=== PATIENT | male | born 1945 | race Caucasian/White ===

== ENCOUNTER 2018-05-06 08:13 | Observation (INO) | payer MEDICARE, BC ==
[2018-05-06 09:11] LABS: ABS Basophils 0.1 10^3/ul (0-0.2); ABS Eosinophils 0.5 10^3/ul (0-0.6); ABS Monocytes 0.6 10^3/ul (0-0.8); ABS Neutrophils 2.5 10^3/ul (1.5-7.7); ABS Nucleated RBC 0 10^3/ul; Eosinophil % 8.2 %; Hematocrit 44 % (42-52); Hemoglobin 14.8 g/dl (14.0-18.0); Lymphocyte % 35.5 %; Mean Corpuscular HGB Conc 34 g/dl (31-36); Mean Corpuscular Hemoglobin 30 pg (27-31); Mean Corpuscular Volume 90 fL (80-94); Mean Platelet Volume 7.9 fL (7.4-10.4); Nucleated Red Blood Cells % 0.1; Platelet Count 163 10^3/ul (150-450); Red Blood Count 4.89 10^6/ul (4.00-5.40); Red Cell Distribution Width 13 % (10.5-15); White Blood Count 5.7 10^3/ul (3.5-10.8)
--- NOTE | 2018-05-06 09:23 | ED ---
Hypertension - HPI Summary HPI Summary: This patient is a 73 year old [place] [facility] [place] by with a chief complaint of high blood pressure that began yesterday. The patient rates the pain 5/10 in severity. Symptoms aggravated by nothing. Symptoms alleviated by nothing. Patient reports left-sided neck pain, dizziness, LLQ abd pain ( worsening in the past year), and top right head feels funny (he hit his head previously). Patient denies CP, upper back pain, and weakness. - History of Current Complaint Chief Complaint: EDHypertension Stated Complaint: POSS HBP/DIZZINESS/LEFT LOWER ABD PAIN Time Seen by Provider: 05/06/18 08:52 Hx Obtained From: Patient Onset/Duration: Started Days Ago, Atraumatic, Still Present Timing: Constant Aggravating Factor(s): Nothing Alleviating Factor(s): Nothing Associated Signs & Symptoms: Other: - Positive left-sided neck pain, dizziness, LLQ abd pain (worsening in the past year), and top right head feels funny (he hit his head previously). Negative CP, upper back pain, and weakness. - Allergies/Home Medications Allergies/Adverse Reactions: Allergies Allergy/AdvReac Type Severity Reaction Status Date / Time amoxicillin Allergy Mild Rash Verified 05/06/18 10:03 Sulfa (Sulfonamide Allergy Mild Headache Verified 05/06/18 10:03 Antibiotics) Home Medications: Home Medications Cholecalciferol TAB* [Vitamin D TAB*] 2,000 unit PO DAILY 05/06/18 [History Confirmed 05/06/18] Citalopram TAB* [Celexa TAB*] 10 mg PO DAILY 05/06/18 [History Confirmed ] Docusate Sodium [Colace] 100 mg PO DAILY 05/06/18 [History Confirmed 05/06/18] Esomeprazole(NF) [Nexium(NF)] 40 mg PO DAILY 05/06/18 [History Confirmed ] Morphine Sulfate [Ms Contin] 15 mg PO BEDTIME 05/06/18 [History Confirmed ] oxyCODONE/Acetamin 5/325 MG* [Percocet 5/325 TAB*] 1 tab PO Q6H PRN 05/06/18 [ History Confirmed 05/06/18] PMH/Surg Hx/FS Hx/Imm Hx Previously Healthy: No Endocrine/Hematology History: Denies: Hx Diabetes, Hx Systemic Lupus Erythematosus Cardiovascular History: Denies: Hx Congestive Heart Failure, Hx Hypertension, Hx Pacemaker/ICD GI History: Reports: Other GI Disorders - constipation, epigastric "ache" History: Denies: Hx Dialysis, Hx Renal Disease Musculoskeletal History: Denies: Hx Rheumatoid Arthritis Sensory History: Denies: Hx Hearing Aid Psychiatric History: Denies: Hx Panic Disorder - Cancer History Cancer Type, Location and Year: follicular lymphoma Hx Chemotherapy: Yes - Surgical History Surgery Procedure, Year, and Place: metal plate in left wrist in 2014 at age 68 - Immunization History Date of Tetanus Vaccine: up to date per pt/family Infectious Disease History: No Infectious Disease History: Denies: History Other Infectious Disease, Traveled Outside the [place] in Last 30 Days - Family History Known Family History: Positive: Other - GERD - Social History Occupation: Retired Lives: With Family Alcohol Use: None Alcohol Amount: pt quit drinking 3 years. Hx Substance Use: No Substance Use Type: Reports: None Hx Tobacco Use: Yes Smoking Status (MU): Former Smoker Review of Systems Positive: Other - Positive high blood pressure. Negative: Chest Pain Positive: Abdominal Pain Positive: Other - Positive left-sided neck pain. Negative upper back pain Neurological: Other - Positive top right head "feels funny" and dizziness Negative: Weakness All Other Systems Reviewed And Are Negative: Yes Physical Exam - Summary Physical Exam Summary: GENERAL: Patient is a well-developed and nourished male who is lying comfortable in the stretcher. Patient is not in any acute respiratory distress. HEAD AND FACE: Normocephalic EYES: PERRLA, EOMI x 2. EARS: Hearing grossly intact. MOUTH: Oropharynx within normal limits. NECK: Supple, trachea is midline, no adenopathy, no JVD, no carotid bruit. CHEST: Symmetric, no tenderness at palpation LUNGS: Clear to auscultation bilaterally. No wheezing or crackles. CVS: Regular rate and rhythm, S1 and S2 present, no murmurs or gallops appreciated. ABDOMEN: Soft. Tender to palpation in the LLQ. No rebound or guarding. Bowel sounds are normal. No abdominal abnormal pulsations. EXTREMITIES: Full ROM in all major joints, no edema, no cyanosis or clubbing. NEURO: Alert and oriented x 3. No acute neurological deficits. Speech is normal and follows commands. SKIN: Dry and warm Triage Information Reviewed: Yes Vital Signs On Initial Exam: Initial Vitals Temp Pulse Resp BP Pulse Ox 97.3 F 58 16 173/102 95 05/06/18 08:20 05/06/18 08:20 05/06/18 08:20 05/06/18 08:20 05/06/18 08:20 Vital Signs Reviewed: Yes Diagnostics - Vital Signs Vital Signs Temp Pulse Resp BP Pulse Ox 05/06/18 09:04 95 05/06/18 08:20 97.3 F 58 16 173/102 95 - Laboratory Lab Results: Lab Results 05/06/18 Range/Units 09:05 WBC 5.7 (3.5-10.8) 10^3/ul RBC 4.89 (4.00-5.40) 10^6/ul Hgb 14.8 (14.0-18.0) g/dl Hct 44 (42-52) % MCV 90 (80-94) fL MCH 30 (27-31) pg MCHC 34 (31-36) g/dl RDW 13 (10.5-15) % Plt Count 163 (150-450) 10^3/ul MPV 7.9 (7.4-10.4) fL Neut % (Auto) 43.5 % Lymph % (Auto) 35.5 % Collier % (Auto) 10.4 % Eos % (Auto) 8.2 % Baso % (Auto) 2.4 % Absolute Neuts (auto) 2.5 (1.5-7.7) 10^3/ul Absolute Lymphs (auto) 2.0 (1.0-4.8) 10^3/ul Absolute Monos (auto) 0.6 (0-0.8) 10^3/ul Absolute Eos (auto) 0.5 (0-0.6) 10^3/ul Absolute Basos (auto) 0.1 (0-0.2) 10^3/ul Absolute Nucleated RBC 0 10^3/ul Nucleated RBC % 0.1 Result Diagrams: 05/06/18 09:05 05/06/18 09:05 Lab Statement: Any lab studies that have been ordered have been reviewed, and results considered in the medical decision making process. - Radiology CXR Radiology Interpretation Completed By: Radiologist Summary of Radiographic Findings: CXR reveals, per radiologist, no active cardiopulmonary disease. ED physician has reviewed this radiology report. - CT Head CTA CT Interpretation Completed By: Radiologist Summary of CT Findings: Head CTA reveals, per radiologist, 1. ATHEROSCLEROSIS. 2. BILATERAL INTERNAL CAROTID ARTERY STENOSIS OF APPROXIMATELY 60% BY NASCET CRITERIA. 3. NO ANEURYSM, VASCULAR MALFORMATION, OCCLUSION, OR STENOSIS OF THE VISUALIZED INTRACRANIAL CIRCULATION. 4. 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 ED physician has reviewed this radiology report. CT Abdomen and Pelvis CT Interpretation Completed By: Radiologist Summary of CT Findings: CT abdomen and pelvis reveals, per radiologist, 1. Atherosclerosis. 2. Fatty infiltration of the liver. 3. No acute CT pathology of the visualized abdomen and pelvis. ED physician has reviewed this radiology report. - EKG 0925 Cardiac Rate: Bradycardia EKG Rhythm: Sinus Rhythm - 52 BPM Summary of EKG Findings: An EKG taken at 0925 reveals sinus bradycardia at 52 BPM with prolonged FL. Re-Evaluation - Re-Evaluation First Eval Re-Evaluation Time: 11:56 Change: Unchanged Comment: Discussed results and plan of care with patient. Hypertension Course/Dx - Course Course Of Treatment: 73-year-old male who presents to the emergency room with elevated blood pressure, left-sided neck pain, abdominal pain. CTA head and neck was remarkable for 60% stenosis of bilateral internal carotid. Dr. Navarro of vascular surgery was consulted who stated that the patient can be discharged home in aspirin and statin and will follow-up with him in the office. Patient's blood pressure continues to be elevated despite antihypertensive and so the decision was made to admit him to the hospital. Case discussed with hospitalist. - Diagnoses Provider Diagnoses: Hypertension - Physician Notifications Discussed Care Of Patient With: Joce French Time Discussed With Above Provider: 14:05 Instructed by Provider To: Other - Consult with Dr. Vasquez (vascular surgeon at [facility]) at 1211. He recommended the patient be discharged with low dose aspirin and low dose statin. His office will communicate with the patient to schedule a follow up. Consult with Dr. French (hospitalist) at 1405. He agrees to admit the patient for further evaluation. Discharge - Sign-Out/Discharge Documenting (check all that apply): Patient Departure - [place] [facility] [place] Received Moderate/Deep Sedation with Procedure: No - Discharge Plan Condition: Improved Disposition: ADMITTED TO [facility] - Billing Disposition and Condition Condition: IMPROVED Disposition: Admitted to [facility] - Attestation Statements Document Initiated by Rosalvaibe: Yes Documenting Scribe: Brianna Gould Provider For Whom Virgen is Documenting (Include Credential): Dr. Parris Long MD Scribe Attestation: IBrianna, scribed for Dr. Parris Long MD on 05/08/18 at 1451. Scribe Documentation Reviewed: Yes Provider Attestation: The documentation as recorded by the Brianna rose accurately reflects the service I personally performed and the decisions made by me, Dr. Parris Long MD Status of Scribe Document: Viewed
[2018-05-06 09:33] LABS: Albumin 3.9 g/dL (3.2-5.2); Albumin/Globulin Ratio 1.2 (1-3); BUN/Creatinine Ratio 11.8 (8-20); Calcium 9.6 mg/dL (8.6-10.3); EGFR African American 72.7 (>60); EGFR Non-African American 60.1 (>60); Globulin 3.3 g/dL (2-4); Potassium 3.8 mmol/L (3.5-5.0); Total Protein 7.2 g/dL (6.4-8.9)
[2018-05-06] MEDS ORDERED: NS 0.9% 1000 ML** 1,000 ML IV ONE (09:34)
[2018-05-06] MEDS ORDERED: Metoclopramide IV* 5 MG/ML 2 ML VIAL IV ONE (09:34)
[2018-05-06] MEDS ORDERED: Morphine VIAL* 4 MG/ML VIAL (1 ml vial) IV ONE (09:34)
[2018-05-06 09:41] LABS: Activated Partial Thrombo Time 28.1 seconds (26.0-36.3); INR 0.92 (0.77-1.02)
[2018-05-06] MEDS ORDERED: Iohexol 350* (CONTRAST) 500 ML MDV IV ONE (09:47)
[2018-05-06] MEDS ORDERED: hydrALAZINE IV* 20 MG/ML VIAL IV SLOW PU ONE (11:25)
[2018-05-06 11:41] LABS: Urine Appearance Clear; Urine Bilirubin Negative (Negative); Urine Blood Negative (Negative); Urine Color Straw; Urine Glucose Negative (Negative); Urine Ketones Negative (Negative); Urine Nitrite Negative (Negative); Urine Protein Negative (Negative); Urine Specific Gravity 1.034 (1.010-1.030); Urine Urobilinogen Negative (Negative)
[2018-05-06] MEDS ORDERED: Metoprolol Tartrate TAB* 25 MG PO ONE (12:04)
[2018-05-06] MEDS ORDERED: Ondansetron INJ* 2 MG/ML VIAL ONE (15:05)
[2018-05-06] MEDS ORDERED: Ondansetron INJ* 2 MG/ML VIAL IV ONE ×2 (15:06→15:08)
[2018-05-06] MEDS ORDERED: hydrALAZINE IV* 20 MG/ML VIAL IV SLOW PU PRN (15:08)
[2018-05-06] MEDS ORDERED: Acetaminophen TAB* 325 MG PO ONE (15:08)
[2018-05-06] MEDS: hydrALAZINE IV* 20 MG/ML VIAL IV SLOW PU ONE ×2 (15:21→16:01)
[2018-05-06] MEDS: Hydrochlorothiazide TAB* 25 MG PO SCH (15:21)
[2018-05-06 15:45] LABS: Troponin I 0.01 ng/mL (<0.04)
[2018-05-06] MEDS: Aspirin 81 mg CHEW TAB* 81 MG TAB.CHEW PO SCH (17:34)
[2018-05-06] MEDS: oxyCODONE/Acetamin 5/325 MG* TAB PO PRN (17:54)
[2018-05-06] MEDS ORDERED: Atorvastatin* 20 MG TAB PO SCH (21:00)
[2018-05-06] MEDS ORDERED: Morphine TAB Extended Release (*) 15 MG TAB.ER PO SCH (21:00)
[2018-05-06] MEDS: Heparin VIAL(*) 5000 UNITS/ML VIAL (FIVE THOUSAND) SUBCUT SCH (21:43)
[2018-05-06] MEDS: Diazepam TAB(*) 5 MG PO SCH (21:43)
[2018-05-06] MEDS: Propranolol TAB* 10 MG PO SCH (21:43)
--- NOTE | 2018-05-06 22:31 | HP ---
CC: Dr. Scott Cerda; Dr. Faraz Cochran * HISTORY AND PHYSICAL: DATE OF ADMISSION: 05/06/18 PRIMARY CARE PROVIDER: Dr. Scott Cerda. PRIMARY ONCOLOGIST: Dr. Faraz Cochran. ATTENDING PHYSICIAN: Dr. Joce French * (dictated by Alex Bal NP) CHIEF COMPLAINT: Frontal headache and dizziness. HISTORY OF PRESENT ILLNESS: Mr. Boyle is a 73-year-old male with past medical history significant for follicular lymphoma, who states that over the past couple weeks he has noticed that he has been dizzy when getting up. He states that after he has been up for a while, this dizziness resolves. He also states that Dr. Cochran has been following hypertension, but he has not had any medications changed. He denies any fevers, chills, chest pain, shortness of breath. He states that he has been having left lower quadrant abdominal pain for years. Denies any history of diverticulitis. His last bowel movement was yesterday. He denies any urinary symptoms such as urgency, dysuria. Additionally, he states that this morning, he developed a frontal headache that he describes as an ache and a constant pain, 7/10. He has found nothing that alleviates the discomfort or worsens the headache. Again due to his symptoms, he presented to the emergency room for further evaluation of his symptoms. When in the emergency room, he was initially found to be hypertensive with systolic blood pressures in the 170s to 200s with diastolics in the 90s to 130s. While he was in the emergency room, he received 5 mg of IV hydralazine, 25 mg of metoprolol tartrate. He received morphine IV, Zofran, a liter of saline, and acetaminophen. Initially, he continued to have a headache, but this did improve during his stay. He had a CTA of his head showing 60% bilateral carotid stenosis. He had an abdomen and pelvis CT without significant acute findings. He had a chest x-ray with no cardiopulmonary disease. He had labs that were fairly unremarkable. He had elevated creatinine, but this is near his baseline. He had a negative urinalysis and EKG showing a sinus ursula at a rate of 52. The troponins were 0.00 x2. He had a CBC that was within normal limits. Due to his significant hypertension, the hospitalists were asked to evaluate the patient for admission. PAST MEDICAL HISTORY: Follicular lymphoma. PAST SURGICAL HISTORY: Status post a left wrist ORIF. HOME MEDICATIONS: Include: 1. Percocet 5/325 one tablet oral every 6 hours as needed for pain. 2. Propranolol 10 mg oral twice daily. 3. Nexium 40 mg oral once daily. 4. Valium 5 mg oral twice daily, typically takes at 7:30 a.m. and 1:30 p.m. 5. Vitamin D 2000 units oral daily. 6. Morphine sulfate 15 mg oral daily at bedtime. 7. Colace 100 mg oral every morning. ALLERGIES: AMOXICILLIN causes rash. SULFA causes a headache. FAMILY HISTORY: Father with a history of angina, but no family history of coronary artery disease. Father with a history of diabetes mellitus. Brother with a history of diabetes. Father with a history of prostate cancer. SOCIAL HISTORY: He is a former smoker. He quit smoking in 1970s. He states that he was a heavy smoker while he served in [employer]. Denies alcohol or recreational drug use. His , Frieda Boyle, will be his surrogate decision maker in the event he is unable to make decisions for himself. REVIEW OF SYSTEMS: I performed an 11-point review of systems. All the pertinent positives and negatives are mentioned in the history of present illness. The remaining review of systems are negative. PHYSICAL EXAMINATION GENERAL APPEARANCE: He is alert, pleasant, appears to be in no acute distress. VITAL SIGNS: Temperature 97.3, heart rate 72, respiratory rate 17, O2 sat 97% on room air, blood pressure 176/99. HEENT: Normocephalic, atraumatic. Pupils are equal and reactive to light. Extraocular movements are intact. NECK: Supple. There is no lymphadenopathy noted. No bruits noted. RESPIRATORY: There is no accessory muscle use. The lungs are clear to auscultation bilateral. CARDIOVASCULAR: Regular rate and rhythm. S1, S2 present. There are no murmurs , rubs, or gallops heard. ABDOMEN: Soft, nontender, nondistended. There are bowel sounds present x4. EXTREMITIES: No lower extremity edema. DP and PT pulses are 2+ and symmetric. MUSCULOSKELETAL: No clubbing or cyanosis noted. He exhibits good strength in all extremities. NEUROLOGICAL: Alert and oriented x4. Cranial nerves II through XII are grossly intact. His handgrips are equal. His dorsi and plantar-flexion are equal. He has no pronator drift. His tongue is midline. His smile is symmetric. He does have some mild resting facial asymmetry on the left side; that is baseline per the patient. PSYCHOLOGICAL: He is calm and cooperative. SKIN: There are no rashes or abnormalities seen. DIAGNOSTIC STUDIES/LABORATORY DATA: Sodium 138, potassium 3.8, chloride 103, CO2 28, BUN 14, creatinine 1.19, glucose 109. White blood cell count 5.7, hemoglobin 14.8, hematocrit 44, and platelet count is 163. Troponin 0.00 x2. Urinalysis is negative. EKG shows a sinus bradycardia at rate of 52. This is similar to previous EKG from 04/18/14. Chest x-ray from today. Radiologist's impression: No active cardiopulmonary disease. Abdomen, pelvis CT from today. Radiologist's impression: Atherosclerosis, fatty infiltration of the liver. No acute CT pathology of the visualized abdomen and pelvis. Head CTA from today. Radiologist's impression: Atherosclerosis, bilateral internal carotid artery stenosis of approximately 60% by NASCET criteria. No aneurysm, vascular malformation, occlusion, or stenosis of the visualized intracranial circulation. Right frontal encephalomalacia suggestive of a right infarct, stable from 2015. IMPRESSION: Mr. Boyle is a 73-year-old male with past medical history significant for follicular lymphoma who presented to the emergency room with complaints of a headache. He will be admitted in observation for hypertensive urgency. ASSESSMENT/PLAN: 1. Hypertensive urgency. The patient's blood pressures have improved during the stay. He is down from the systolic 200s to the 150s systolic after receiving IV hydralazine, hydrochlorothiazide, and metoprolol. I do not want to drop his blood pressures any further today and I will continue him on hydrochlorothiazide 25. I will start losartan 50 mg oral daily. Tomorrow, he will be continued on his home propranolol. Additionally, he will have hydralazine as needed for systolic blood pressures greater than 180, diastolic greater than 100. 2. Bilateral carotid artery stenosis. I am going to start him on atorvastatin 20 mg daily. We will check fasting lipids tomorrow. Additionally, I am going to start him on a baby aspirin. 3. Abdominal pain. This is a chronic issue for the patient, he states, ongoing for approximately 3 years. He does have significant atherosclerosis seen on imaging in the setting of this and has complaints of abdominal pain. In the differential includes mesenteric ischemia. He has no tenderness to his abdomen and plan will be to check an LDH. At this time, we are going to hold off on a CTA of his abdomen, but this could be considered in the future, if his pain or symptoms change, to rule out mesenteric ischemia. 4. Dizziness. I suspect this is likely secondary to orthostatic hypotension even though he has been hypertensive. We will check orthostatic blood pressures and make further plans based off of those. 5. Elevated D-dimer. His D-dimer is 458. He denies any chest pain, shortness of breath. I will hold off on a CTA of his chest. I have a low suspicion for PE at this time. 6. Chronic kidney disease stage 2. His creatinine is at baseline. We will just continue to follow this. 7. Follicular lymphoma. He has a history of receiving Rituxan in the past in 2011 when he was diagnosed. He is going to continue to follow with Dr. Cochran outpatient. 8. Chronic pain. He will be continued on his home Percocet and morphine. 9. Gastroesophageal reflux disease. He will be continued on Nexium or other substitute in the hospital. 10. Anxiety. He will be continued on his routine Valium. 11. Fluids, electrolytes, and nutrition. Heart healthy diet. 12. Code status. Full code. 13. DVT prophylaxis. He is at high risk. He will have subcu heparin. 14. Disposition. Observation. TIME SPENT: Time for this admission was approximately 60 minutes; greater than half of that was spent with the patient and family discussing medications, past medical history, the events leading to his arrival today, performing a physical examination. The case has been reviewed with the attending, Dr. French, who agrees with the plan of care. ALEX LOVELL, KERMIT [id number]/[facility] #: [id number] CONNIE
[2018-05-07] MEDS: oxyCODONE/Acetamin 5/325 MG* TAB PO PRN ×2 (03:23→09:19)
[2018-05-07] MEDS: Heparin VIAL(*) 5000 UNITS/ML VIAL (FIVE THOUSAND) SUBCUT SCH (06:14)
[2018-05-07 06:50] LABS: HDL Cholesterol 34.9 mg/dL
[2018-05-07] MEDS ORDERED: Ondansetron INJ* 2 MG/ML VIAL IV PRN (08:29)
[2018-05-07] MEDS ORDERED: Citalopram TAB* 10 MG PO SCH (09:00)
[2018-05-07] MEDS ORDERED: Cholecalciferol TAB* 1000 UNITS PO SCH (09:00)
[2018-05-07] MEDS ORDERED: Docusate CAP* 100 MG PO SCH (09:00)
[2018-05-07] MEDS ORDERED: Losartan TAB* 25 MG PO SCH (09:00)
[2018-05-07] MEDS ORDERED: Pantoprazole TAB * 40 MG TAB PO SCH (09:00)
[2018-05-07] MEDS: Hydrochlorothiazide TAB* 25 MG PO SCH (09:12)
[2018-05-07] MEDS: Diazepam TAB(*) 5 MG PO SCH (09:12)
[2018-05-07] MEDS: Propranolol TAB* 10 MG PO SCH (09:13)
[2018-05-07] MEDS: Aspirin 81 mg CHEW TAB* 81 MG TAB.CHEW PO SCH (09:13)
[2018-05-07 12:18] VITALS: BP 122/74
--- NOTE | 2018-05-08 01:35 | DS ---
DISCHARGE SUMMARY: DATE OF ADMISSION: 05/06/18 DATE OF DISCHARGE: 05/07/18 ADMITTING PROVIDER: Almita Smith NP ATTENDING PHYSICIAN ON DATE OF DISCHARGE: Almas Butt MD PRIMARY CARE PROVIDER: Dr. Scott Cerda. OUTPATIENT ONCOLOGIST: Dr. Faraz Cochran. CHIEF COMPLAINT: Headache, dizziness. PRINCIPAL DIAGNOSES: 1. Hypertensive urgency. 2. Bilateral moderate carotid artery stenosis. 3. Hyperlipidemia. HISTORY OF PRESENT ILLNESS/HOSPITAL COURSE: Enmanuel Boyle is a 73-year-old male with past medical history of follicular lymphoma, who has been on atenolol for decades. Please see [facility] and [facility] of Almita Smith for full details, but briefly he has noticed over the last couple weeks that he has been getting dizzy when standing up. He developed frontal headache that seemed worse with lying down. He presented to the emergency room and found to have systolics between 170s to 200s, diastolics in 90s to 130s. He got 5 of IV hydralazine, 25 of metoprolol tartrate. He had a CTA of his head showing 60% bilateral carotid artery stenosis. The CTA of his abdomen and pelvis without significant acute findings. Chest x-ray showed no cardiopulmonary disease. He had a CMP, CBC, BMP all within normal limits, urinalysis as well other than high specific gravity. His LDL was 162, his HDL was 35. Troponins were 0.00, 0.00, and 0.01. He was started on losartan and hydrochlorothiazide and his blood pressures had improved greatly by morning of hospital day 2 to 120s to 140s. His headache has resolved. He was able to ambulate around the unit with this provider, was steady on his feet, and was considered stable for discharge to home. He was discharged with new medications losartan and hydrochlorothiazide, statin (atorvastatin), and aspirin 81 mg daily. DISCHARGE MEDICATIONS: Include: 1. Aspirin 81 mg daily (new). 2. Atorvastatin 20 mg daily (new). 3. Cholecalciferol 2000 units p.o. daily. 4. Citalopram mg p.o. daily. 5. Valium 5 mg p.o. b.i.d. 6. Docusate 100 mg p.o. daily. 7. Nexium 40 mg p.o. daily. 8. Hydrochlorothiazide 25 mg daily (new). 9. Losartan 50 mg daily (new). 10. Morphine sulfate 15 mg at bedtime. 11. Oxycodone/acetaminophen 1 tab p.o. q.6 hours p.r.n. 12. Propranolol 10 mg p.o. b.i.d. DISCHARGE DIET: Heart healthy. FOLLOWUP: The patient should follow up with Dr. Scott Cerda within 4 to 7 days. He was asked to start a blood pressure log and record this daily he should report any symptoms of lightheadedness or headaches. TIME SPENT ON DISCHARGE: Thirty-five minutes. [id number]/[facility] #: [id number] CONNIE
== END 2018-05-07 13:50 | disposition home or self-care (01) ==
LOC: ED 08:13 → MEDTELE 15:01
PROVIDERS: ADMIT Student in an Organized Health Care Education/Training Program; ATTEND Internal Medicine
DX: I16.0 Hypertensive urgency (principal); I10 Essential (primary) hypertension; I25.10 Atherosclerotic heart disease of native coronary artery without angina pectoris; R51 Headache; R42 Dizziness and giddiness; Z79.82 Long term (current) use of aspirin; Z88.0 Allergy status to penicillin; Z88.2 Allergy status to sulfonamides; K76.0 Fatty (change of) liver, not elsewhere classified; Z87.891 Personal history of nicotine dependence; I70.90 Unspecified atherosclerosis
CPT/HCPCS: 36415; 70496; 70498; 71045; 74177; 80053; 80061; 81003; 83605; 83615; 83880; 84484; 85025; 85379; 85610; 85730; 93005; 96372; 96374; 96375; 99284; A9270-GY; G0378; J0360; J1644; J2270; J2405; J2765; Q9967

== ENCOUNTER 2019-01-05 13:23 | Emergency (ER) | payer MEDICARE, BC ==
[2019-01-05 14:14] LABS: ABS Basophils 0.1 10^3/ul (0-0.2); ABS Lymphocytes 2.5 10^3/ul (1.0-4.8); ABS Monocytes 0.8 10^3/ul (0-0.8); ABS Neutrophils 3.4 10^3/ul (1.5-7.7); Eosinophil % 13.3 %; Hematocrit 46 % (42-52); Hemoglobin 15.4 g/dL (14.0-18.0); Lymphocyte % 31.5 %; Mean Corpuscular HGB Conc 34 g/dL (31-36); Mean Corpuscular Hemoglobin 30 pg (27-31); Mean Corpuscular Volume 90 fL (80-94); Mean Platelet Volume 7.8 fL (7.4-10.4); Nucleated Red Blood Cells % 0.1; Platelet Count 214 10^3/uL (150-450); Red Cell Distribution Width 14 % (10-15); White Blood Count 7.8 10^3/uL (3.5-10.8)
--- NOTE | 2019-01-05 14:14 | ED ---
Psychiatric Complaint - HPI Summary HPI Summary: This patient is a 73 year old male arriving on a 945 presenting to [facility] with a chief complaint of suicidal ideation. The patient sttes he has thoughts due to caring to his who just had knee surgery and a dependent son. The patient states he has guns at home. The patient states he had a suicide attempt 20 years ago with a valium overdose but that he has moved past it and states while he thinks of suicide he states everybody does and that he is not contemplating an attempt. States he has not been sleeping well since he had a traumatic accident years ago. Pt denies any fever, chills, erythema of eyes, sore throat, CP, SOB, cough, abdominal pain, N/V, dysuria, hematuria, myalgia, edema, rash, or dizziness - History Of Current Complaint Chief Complaint: EDMentalHealth Time Seen by Provider: 01/05/19 13:45 Hx Obtained From: Patient Onset/Duration: Lasting Hours Has Suicidal: Reports: Thoughts, Has Prior Attempt(s). Denies: With A Plan, Demonstrates Gesture - Allergies/Home Medications Allergies/Adverse Reactions: Allergies Allergy/AdvReac Type Severity Reaction Status Date / Time amoxicillin Allergy Mild Rash Verified 10/18/18 13:40 Sulfa (Sulfonamide Allergy Mild Headache Verified 10/18/18 13:40 Antibiotics) PMH/Surg Hx/FS Hx/Imm Hx Endocrine/Hematology History: Denies: Hx Diabetes, Hx Systemic Lupus Erythematosus Cardiovascular History: Denies: Hx Congestive Heart Failure, Hx Hypertension, Hx Pacemaker/ICD GI History: Reports: Hx Gastroesophageal Reflux Disease, Other GI Disorders - constipation, epigastric "ache" History: Denies: Hx Dialysis, Hx Renal Disease Musculoskeletal History: Reports: Hx Back Problems - post trauma fall, Hx Orthopedic Injury - shattered tibia/fx cerv vert Denies: Hx Rheumatoid Arthritis Sensory History: Reports: Hx Contacts or Glasses - not with pt, Hx Eye Injury - with trauma fall, Hx Hearing Problem Denies: Hx Hearing Aid Opthamlomology History: Reports: Hx Contacts or Glasses - not with pt, Hx Eye Injury - with trauma fall Psychiatric History: Reports: Hx Anxiety, Hx Depression Denies: Hx Panic Disorder - Cancer History Cancer Type, 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 Hx Substance Use: No Substance Use Type: Reports: None Hx Tobacco Use: Yes Smoking Status (MU): Former Smoker Review of Systems Negative: Fever, Chills Negative: Erythema Negative: Sore Throat Negative: Chest Pain Negative: Shortness Of Breath, Cough Negative: Abdominal Pain, Vomiting, Nausea Negative: dysuria, hematuria Negative: Myalgia, Edema Negative: Rash Neurological: Other - Neg: Dizziness Positive: Other - Suicidal Ideation All Other Systems Reviewed And Are Negative: No Physical Exam - Summary Physical Exam Summary: Constitutional: Well-developed, Well-nourished, Alert. (-) Distressed Skin: Warm, Dry HENT: Normocephalic; Atraumatic Eyes: Conjunctiva normal Neck: Musculoskeletal ROM normal neck. (-) JVD, (-) Stridor, (-) Tracheal deviation Cardio: Rhythm regular, rate normal, Heart sounds normal; Intact distal pulses; The pedal pulses are 2+ and symmetric. Radial pulses are 2+ and symmetric. (-) Murmur Pulmonary/Chest wall: Effort normal. (-) Respiratory distress, (-) Wheezes, (-) Rales Abd: Soft, (-) tenderness, (-) Distension, (-) Guarding, (-) Rebound Musculoskeletal: (-) Edema Lymph: (-) Cervical adenopathy Neuro: Alert, Oriented x3 Psych: Mood and affect Normal Triage Information Reviewed: Yes Vital Signs On Initial Exam: Initial Vitals Temp Pulse Resp BP Pulse Ox 97.6 F 68 16 147/89 100 01/05/19 13:30 01/05/19 13:30 01/05/19 13:30 01/05/19 13:30 01/05/19 13:30 Vital Signs Reviewed: Yes Procedures - Sedation Patient Received Moderate/Deep Sedation with Procedure: No Diagnostics - Vital Signs Vital Signs Temp Pulse Resp BP Pulse Ox 01/05/19 13:30 97.6 F 68 16 147/89 100 - Laboratory Result Diagrams: 01/05/19 14:03 01/05/19 14:03 Lab Statement: Any lab studies that have been ordered have been reviewed, and results considered in the medical decision making process. Course/Dx - Course Course Of Treatment: This patient is a 73 year old male arriving on a 945 presenting to [facility] with a chief complaint of suicidal ideation. Patient was cleared for [facility]. [facility] discharged the patient with adjustment disorder and depressed mood, per Dr. Lemons. - Differential Dx/Clinical Impression Provider Diagnosis: Adjustment disorder, Depressed mood Discharge ED - Sign-Out/Discharge Documenting (check all that apply): Patient Departure - Discharge, per [facility] - Discharge Plan Condition: Stable Referrals: Scott Cerda MD [Primary Care Provider] - - Attestation Statements Document Initiated by Scribe: Yes Documenting Scribe: Olu Newsome Provider For Whom Scribe is Documenting (Include Credential): Kaz Nuñez MD Scribe Attestation: Olu Mullins, scribed for Kaz Nuñez MD on 01/05/19 at 1750. Status of Scribe Document: Ready
[2019-01-05 14:33] LABS: ALT 15 U/L (7-52); AST 18 U/L (13-39); Albumin 4.3 g/dL (3.2-5.2); Albumin/Globulin Ratio 1.2 (1-3); Alkaline Phosphatase 73 U/L (34-104); Anion Gap 6 mmol/L (2-11); BUN/Creatinine Ratio 15.4 (8-20); Blood Urea Nitrogen 20 mg/dL (6-24); CO2 Carbon Dioxide 30 mmol/L (22-32); Calcium 9.7 mg/dL (8.6-10.3); Chloride 100 mmol/L (101-111); EGFR African American 65.7 (>60); EGFR Non-African American 54.3 (>60); Globulin 3.7 g/dL (2-4); Glucose 108 mg/dL (70-100); Potassium 4.2 mmol/L (3.5-5.0); Sodium 136 mmol/L (135-145)
--- OUTSIDE RECORDS SUMMARY | 2019-01-05 14:33 | XMS REPORT | Continuity of Care Document ---
:1945 External Reference #:[id number] Author Name Scott Nicole MD Address [address] [place] [address] Problems Active Problems Provider Date Adult health examination Scott Cerda M.D. Onset: 12/29/2010 Peptic reflux disease Scott Cerda M.D. Onset: 05/18/2011 Acute conjunctivitis Scott Cerda M.D. Onset: 11/01/2011 Malignant lymphoma of lymph nodes Scott Cerda M.D. Onset: 01/18/2012 Hyperlipidemia Scott Cerda M.D. Onset: 01/18/2012 Acute maxillary sinusitis Scott Cerda M.D. Onset: 02/18/2012 Multiple joint pain Scott Cerda M.D. Onset: 10/31/2012 Eruption Scott Cerda M.D. Onset: 12/17/2013 Fall From Ladder Scott Cerda M.D. Onset: 07/23/2014 Essential hypertension Scott Cerda M.D. Onset: 10/24/2015 Neck pain Scott Cerda M.D. Onset: 01/09/2016 Anxiety state Scott Cerda M.D. Onset: 01/09/2016 Generalized abdominal pain Scott Cerda M.D. Onset: 07/20/2017 Social History Type Date Description Comments Sex Unknown Tobacco Use Start: Unknown Nonsmoker Tobacco Use Start: Unknown End: Unknown Patient is a former smoker quit 1971 Smoking Status Reviewed: 11/18/18 Patient is a former smoker quit 1971 Allergies, Adverse Reactions, Alerts Active Allergies Reaction Severity Comments Date Sulfa Drugs Amoxicillin rash 04/05/2009 Medications Active Medications SIG Qnty Indications Ordering Date Provider Dicyclomine HCL one by mouth 30caps R10.30 Scott De León 11/18/2018 10mg Capsules three times a MD Corey day as needed abdominal cramps. Sildenafil Citrate take 1 tablet 6tabs Scott Rg 08/09/2018 50mg Tablets by mouth 1 hour Emiliana Cerda prior to sexual relations - maximum dose of 1 tablet in 24 hours Valium 1 by mouth 60tabs Brianna Mcdowell 12/28/2017 5mg Tablets twice daily as KERMIT Cooper needed for anxiety Percocet 1 five times a 150tabs Nirav T. 10/17/2017 5-325mg Tablets day as needed Emiliana Headley Propranolol HCL take 1 tablet 60tabs Scott Rg 06/25/2014 10mg Tablets by mouth twice Emiliana Cerda a day Vitamin D3 Super Strength take one tab by Unknown mouth daily. 2000Unit Capsules Colace 1 by mouth once Unknown 100mg Capsules daily Atorvastatin Calcium take 1 tablet 30tabs Scott Rg 20mg by mouth once Emiliana Cerda Tablets daily Hydrochlorothiazide take 1 tablet 30tabs Scott Rg 25mg by mouth once Emiliana Cerda Tablets daily Aspir-81 1 by mouth Unknown 81mg Tablets DR every day Lyrica take one by Unknown 75mg Capsules mouth Four Times daily Bupropion Hydrochloride 1 by mouth 90Tablet Unknown ER (XL) every day 150mg Tablets ER 24HR Nexium 24HR 1 po qd Unknown 20mg Tablets DR History Medications Oxycodone HCL 1 by mouth qqid 30tabs Scott Nicole, 11/18/2018 - 5mg as needed 11/18/2018 Tablets Medications Administered in Office Medication SIG Qnty Indications Ordering Provider Date TB Intradermal Test Jose Velasco M.D. 12/17/1999 Injection Immunizations CPT Code Status Date Vaccine Lot # [id number] Given 12/16/2017 Influenza Vac, Quadriv[place], [place] [address] Given 12/04/2016 High-Dose, Influenza Virus Vacccine-fluzone 65 [id number] and older 04678 Given 03/12/2016 Pneumococcal Immunization [id number] 83176 Given 12/26/2015 High-Dose, Influenza Virus Vacccine-fluzone 65 and older 80505 Given 12/11/2014 High-Dose, Influenza Virus Vacccine-fluzone 65 and older 37372 Given 11/01/2014 Pneumococcal Conjugate Vacc-13 [id number] 87733 Given 11/19/2013 DO Not Use Split Influenza Virus Vaccine 60553 Given 11/08/2011 DO Not Use Split Influenza Virus Vaccine 02418 Given 12/16/2009 DO Not Use Split Influenza Virus Vaccine [id number] 64346 Given 03/01/2009 DO Not Use Split Influenza Virus Vaccine [id number] 34282 Given 02/09/2008 DO Not Use Split Influenza Virus Vaccine [id number] 00303 Given 12/26/2006 Tetanus And Diptheria Adult Preservative Free [id number] >7Yrs 98195 Given 02/22/2006 DO Not Use Split Influenza Virus Vaccine [id number] Vital Signs Date Vital Result Comment 11/18/2018 11:36am BP Systolic 120 mmHg BP Diastolic 60 mmHg Heart Rate 72 /min Body Temperature 97.5 F Respiratory Rate 16 /min Height 56.5 inches 4'8.50" Weight 185.38 lb BMI (Body Mass Index) 40.8 kg/m2 09/19/2018 12:59pm BP Systolic 120 mmHg BP Diastolic 82 mmHg Heart Rate 80 /min Body Temperature 98.3 F Respiratory Rate 16 /min Height 56.5 inches 4'8.50" Weight 185.00 lb BMI (Body Mass Index) 40.7 kg/m2 Results Test Date Facility Test Result H/L Range Note Lipid Profile 09/26/2018 [facility] [place] Triglycerides 141 mg/dL 1 (Trig/Chol/HDL) Cholesterol 147 mg/dL 2 HDL Cholesterol 34.3 mg/dL 3 LDL Cholesterol 85 mg/dL 4 Laboratory test 09/26/2018 [facility] [place] PSA Screening 2.013 ng/mL Normal 0-4.000 5 finding CBC Auto Diff 05/26/2018 [facility] [place] White Blood Count 7.2 10^3/uL Normal 3.5- 10.8 Red Blood Count 4.80 10^6/uL Normal 4.00-5.40 Hemoglobin 14.4 g/dL Normal 14.0-18.0 Hematocrit 43 % Normal 42-52 Mean Corpuscular Volume 89 fL Normal 80-94 Mean Corpuscular Hemoglobin 30 pg Normal 27-31 Mean Corpuscular HGB Conc 34 g/dL Normal 31-36 Red Cell Distribution Width 14 % Normal 10.5-15 Platelet Count 186 10^3/uL Normal 150-450 Mean Platelet Volume 7.8 fL Normal 7.4-10.4 Abs Neutrophils 3.7 10^3/uL Normal 1.5-7.7 Abs Lymphocytes 2.1 10^3/uL Normal 1.0-4.8 Abs Monocytes 0.8 10^3/uL Normal 0-0.8 Abs Eosinophils 0.5 10^3/uL Normal 0-0.6 Abs Basophils 0.1 10^3/uL Normal 0-0.2 Abs Nucleated RBC 0 10^3/uL Granulocyte % 51.9 % Lymphocyte % 28.9 % Monocyte % 11.3 % Eosinophil % 6.4 % Basophil % 1.5 % Nucleated Red Blood Cells % 0.1 Comp Metabolic Panel 05/26/2018 [facility] [place] Sodium 137 mmol/L Normal 135-145 Potassium 3.9 mmol/L Normal 3.5-5.0 Chloride 99 mmol/L Low 101-111 Co2 Carbon Dioxide 32 mmol/L Normal 22-32 Anion Gap 6 mmol/L Normal 2-11 Glucose 99 mg/dL Normal 70-100 Blood Urea Nitrogen 16 mg/dL Normal 6-24 Creatinine 1.06 mg/dL Normal 0.67-1.17 BUN/Creatinine Ratio 15.1 Normal 8-20 Calcium 9.5 mg/dL Normal 8.6-10.3 Total Protein 7.4 g/dL Normal 6.4-8.9 Albumin 4.2 g/dL Normal 3.2-5.2 Globulin 3.2 g/dL Normal 2-4 Albumin/Globulin Ratio 1.3 Normal 1-3 Total Bilirubin 0.70 mg/dL Normal 0.2-1.0 Alkaline Phosphatase 63 U/L Normal 34-104 Alt 17 U/L Normal 7-52 Ast 16 U/L Normal 13-39 Egfr Non- 68.7 >60 Egfr 83.1 >60 6 Laboratory test finding 05/26/2018 [facility] 159 U/L Normal 140-271 1 Desirable: <150 Borderline High: 150-199 High: 200-499 Very High: >500 2 Desirable: <200 Borderline High: 200-239 High: >239 3 Low: <40 Desirable: 40-60 High: >60 4 Desirable: <100 Near Optimal: 100-129 Borderline High: 130-159 High: 160-189 Very High: >189 5 Serum levels of PSA measured using the [employer] DXI Hybritech immunoassay should not be interpreted as absolute evidence of the presence or absence of disease. The PSA value should be used in conjunction with other pertinent clinical diagnostic procedures. The values obtained with different assay methods or kits cannot be used interchangeably. 6 Because ethnic data is not always readily available, this report includes an eGFR for both -Americans and non- Americans. The National Kidney Disease Education Program (NKDEP) does not endorse the use of the MDRD equation for patients that are not between the ages of 18 and 70, are , have extremes of body size, muscle mass, or nutritional status, or are non- or non-. According to the National Kidney Foundation, irrespective of diagnosis, the stage of the disease is based on the level of kidney function: Stage Description GFR(mL/min/1.73 m(2)) 1 Kidney damage with normal or decreased GFR 90 2 Kidney damage with mild decrease in GFR 60-89 3 Moderate decrease in GFR 30-59 4 Severe decrease in GFR 15-29 5 Kidney failure <15 (or dialysis) Procedures Date Code Description Status 09/08/2011 22437158 Colonoscopy Completed Medical Devices Description No Information Available Encounters Type Date Location Provider Dx Diagnosis Office Visit 06/13/2018 [facility] Office Scott Em Essential (primary) 2:20p Emiliana Cerda hypertension C85.18 Unspecified B-cell lymphoma, lymph nodes of multiple sites F41.9 Anxiety disorder, unspecified Office Visit 05/23/2018 10:00a [facility] Office Scott Em Essential ( primary) Emiliana Cerda hypertension Assessments Date Code Description Provider 11/18/2018 R10.30 Lower abdominal pain, unspecified Scott Nicole MD 11/18/2018 F11.23 Opioid dependence with withdrawal Scott Nicole MD 09/19/2018 Z00.00 Encounter for general adult medical Scott Cerda M.D. examination without abnormal findings 09/19/2018 R10.84 Generalized abdominal pain Scott Cerda M.D. 09/19/2018 F41.9 Anxiety disorder, unspecified Scott Cerda M.D. 09/19/2018 C85.18 Unspecified B-cell lymphoma, lymph nodes Scott Cerda M.D. of multiple sites 09/19/2018 I10 Essential (primary) hypertension Scott Cerda M.D. 09/19/2018 Z12.5 Encounter for screening for malignant Scott Cerda M.D. neoplasm of prostate 06/13/2018 I10 Essential (primary) hypertension Scott Cerda M.D. 06/13/2018 C85.18 Unspecified B-cell lymphoma, lymph nodes Scott Cerda M.D. of multiple sites 06/13/2018 F41.9 Anxiety disorder, unspecified Scott Cerda M.D. 05/23/2018 I10 Essential (primary) hypertension Scott Cerda M.D. Plan of Treatment 11/18/2018 - Scott Nicole, MDR10.30 Lower abdominal pain, unspecifiedNew Medication:Dicyclomine HCL 10 mg - one by mouth three times a day as needed abdominal cramps.F11.23 Opioid dependence with withdrawalAllComments:Medication Management Patient Understands medications he' s taking? Yes No Are there Barriersto Adherence? Yes No Has the patient been asked about herbal supplements and therapies, and OTC meds? Yes No Functional Status Description No Information Available Mental Status Description No Information Available Referrals Description No Information Available
[2019-01-05 14:55] LABS: Acetaminophen < 15 mcg/mL; Alcohol < 10 mg/dL (<10); Salicylate < 2.50 mg/dL (<30)
[2019-01-05 15:08] LABS: Urine Appearance Clear; Urine Bacteria Absent (Absent); Urine Bilirubin Negative (Negative); Urine Blood 1+ (Negative); Urine Color Yellow; Urine Glucose Negative (Negative); Urine Ketones Negative (Negative); Urine Nitrite Negative (Negative); Urine Protein Negative (Negative); Urine Red Blood Cell Absent (Absent); Urine Specific Gravity 1.014 (1.010-1.030); Urine Urobilinogen Negative (Negative); Urine White Blood Cell Trace(0-5/hpf) (Absent)
[2019-01-05 15:10] LABS: TSH (Thyroid Stimulating Horm) 3.07 mcIU/mL (0.34-5.60)
[2019-01-05 15:54] LABS: Urine Benzodiazepine Screen Presumptive Positive (None Detect); Urine Opiates Screen None Detected (None Detect)
[2019-01-05 18:32] VITALS: BP 154/97
== END 2019-01-05 18:00 | disposition home or self-care (01) ==
LOC: ED 13:23
DX: F43.21 Adjustment disorder with depressed mood (principal); K21.9 Gastro-esophageal reflux disease without esophagitis; F41.9 Anxiety disorder, unspecified; Z88.1 Allergy status to other antibiotic agents; Z88.2 Allergy status to sulfonamides; Z87.891 Personal history of nicotine dependence; Z85.72 Personal history of non-Hodgkin lymphomas; Z79.899 Other long term (current) drug therapy
CPT/HCPCS: 36415; 80053; 80307; 80320; 80329; 81003; 81015; 84443; 85025; 87086; 99285; G0480

== ENCOUNTER 2019-01-28 19:55 | Observation (INO) | payer MEDICARE, BC ==
[2019-01-28] MEDS ORDERED: NS 0.9% 1000 ML** 2,000 ML IV ONE (20:08)
[2019-01-28] MEDS ORDERED: Morphine 4 MG/ML VIAL (1 ml) 4 MG/ML VIAL IV ONE (20:09)
[2019-01-28] MEDS ORDERED: Morphine 10 MG/ML VIAL (1 ml) IV ONE ×2 (20:09→21:00)
--- NOTE | 2019-01-28 20:09 | ED ---
Abdominal Pain/Male - HPI Summary HPI Summary: This pt is a 74 y/o male [place] [facility] [place] abd pain since 0700. Pt states his abd pain is located around his umbilicus and sometimes radiates higher up. Denies radiating pain to his flanks or back. Pt reports he has never had this pain in the past. Denies diarrhea, nausea, vomiting, fever. Pt states his last bowel movement was yesterday. He notes he has been urinating ok. Pt takes Oxycodone chronically TID after pt fell off 15 feet in 2013 where he sustained multiple fractures to his skull, neck, wrist. Per , pt has been complaining of abd pain since the fall but pt has had CT and PET scans that were negative and only showed 2 small hernias. Patient states his abd pain has never been this severe in the past. Patient reports no relief of abd pain after taking oxycodone today. Denies any PSHx of abdominal surgeries. PMHx: Follicular lymphoma. Patient's oncologist is Dr. Cochran and pt is not currently in treatment. Per , pt had 4 immunotherapy infusions in 2011. Pt notes he takes Lyrica and was weaning himself off of it, he was taking 300 mg initially and he stopped at 75 mg about 4 days ago. Pt is hard of hearing, per . - History of Current Complaint Chief Complaint: EDAbdPain Stated Complaint: ABD PAIN PER PT Hx Obtained From: Patient, Family/[employer]ire [employer] - Onset/Duration: Lasting Hours, Still Present Timing: Lasting Hours Severity Currently: Severe Pain Intensity: 10 Pain Scale Used: 0-10 Numeric Location: Umbilical Radiates: Yes Radiates to: Other - epigastric Aggravating Factor(s): Nothing Alleviating Factor(s): Nothing Associated Signs And Symptoms: Negative: Fever, Urinary Symptoms, Nausea, Vomiting, Diarrhea - Allergies/Home Medications Allergies/Adverse Reactions: Allergies Allergy/AdvReac Type Severity Reaction Status Date / Time amoxicillin Allergy Mild Rash Verified 01/28/19 19:59 Sulfa (Sulfonamide Allergy Mild Headache Verified 01/28/19 19:59 Antibiotics) PMH/Surg Hx/FS Hx/Imm Hx Endocrine/Hematology History: Denies: Hx Diabetes, Hx Systemic Lupus Erythematosus Cardiovascular History: Denies: Hx Congestive Heart Failure, Hx Hypertension, Hx Pacemaker/ICD GI History: Reports: Hx Gastroesophageal Reflux Disease, Other GI Disorders - constipation, epigastric "ache" History: Denies: Hx Dialysis, Hx Renal Disease Musculoskeletal History: Reports: Hx Back Problems - post trauma fall, Hx Orthopedic Injury - shattered tibia/fx cerv vert Denies: Hx Rheumatoid Arthritis Sensory History: Reports: Hx Contacts or Glasses - not with pt, Hx Eye Injury - with trauma fall, Hx Hearing Problem Denies: Hx Hearing Aid Opthamlomology History: Reports: Hx Contacts or Glasses - not with pt, Hx Eye Injury - with trauma fall Psychiatric History: Reports: Hx Anxiety, Hx Depression Denies: Hx Eating Disorder, Hx Panic Disorder, Hx of Violent Episodes Against Others - Cancer History Cancer Type, 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 Hx Substance Use: No Substance Use Type: Reports: None Hx Tobacco Use: Yes - not since the 1970s Smoking Status (MU): Former Smoker Review of Systems Negative: Fever Positive: Abdominal Pain. Negative: Vomiting, Diarrhea, Nausea Positive: no symptoms reported All Other Systems Reviewed And Are Negative: Yes Physical Exam - Summary Physical Exam Summary: Appearance: Elderly man, Well-developed, Well-nourished, who appears to be in pain and quite uncomfortable. Skin: Warm, dry, no obvious rash Eyes: sclera anicteric, no conjunctival pallor ENT: mucous membranes moist, pharynx appears normal Neck: Supple, nontender Respiratory: Clear to auscultation, no signs of respiratory distress Cardiovascular: Normal S1, S2. No murmurs. Normal distal pulses in tibial and radial bilaterally. Abdomen: Soft, mild diffuse tenderness but no focal tenderness to palpation or peritoneal signs, normal active bowel sounds present Musculoskeletal: Normal, Strength/ROM Intact Neurological: A&Ox3, awake and alert, mentation is normal, speech is fluent and appropriate Psychiatric: affect is normal, does not appear anxious or depressed Triage Information Reviewed: Yes Vital Signs On Initial Exam: Initial Vitals Temp Pulse Resp BP Pulse Ox 97.3 F 94 16 152/98 97 01/28/19 19:57 01/28/19 19:57 01/28/19 19:57 01/28/19 19:57 01/28/19 19:57 Vital Signs Reviewed: Yes Procedures - Sedation Patient Received Moderate/Deep Sedation with Procedure: No Diagnostics - Vital Signs Vital Signs Temp Pulse Resp BP Pulse Ox 01/28/19 19:57 97.3 F 94 16 152/98 97 - Laboratory Result Diagrams: 01/29/19 07:26 01/28/19 20:17 Lab Statement: Any lab studies that have been ordered have been reviewed, and results considered in the medical decision making process. - CT CT abdomen/pelvis CT Interpretation Completed By: Radiologist Summary of CT Findings: IMPRESSION: 1. Suggested bowel wall thickening in the right and proximal transverse colon and hepatic flexure which could be secondary to incomplete distention. However, colitis could have a similar appearance. Correlate with clinical history. 2. No enlarged abdominal lymph nodes. No splenomegaly. Dr. Rodriguez has reviewed this report. - EKG 20:30 Cardiac Rate: NL - at 79 bpm EKG Rhythm: Sinus Rhythm Summary of EKG Findings: EKG at 2030 shows NSR at 79 BPM, ventricular premature complex. No STEMI. Re-Evaluation - Re-Evaluation First Eval Re-Evaluation Time: 20:24 Comment: Per ED nurse, pt is now c/o jaw pain, chin pain, and epigastric pain. Third Eval Re-Evaluation Time: 23:39 Comment: Discussed admission plan with pt. He understands and agrees. Abdominal Pain Male Course/Dx - Course Assessment/Plan: Pt is a 74 y/o male [place] [facility] [place] worsening abd pain since 0700. Pt states his abd pain is located around his umbilicus and sometimes radiates higher up. Pt reports he has never had this pain in the past. Denies diarrhea, nausea, vomiting, fever. Pt states his last bowel movement was yesterday. He notes he has been urinating ok. No relief after taking oxycodone today. CT shows 1. Suggested bowel wall thickening in the right and proximal transverse colon and hepatic flexure which could be secondary to incomplete distention. However, colitis could have a similar appearance. Correlate with clinical history. 2. No enlarged abdominal lymph nodes. No splenomegaly. On exam, pt is an elderly man who appears to be in pain and quite uncomfortable with mild diffuse tenderness but no focal tenderness to palpation or peritoneal signs. Lab work obtained and remarkable for sodium of 131, potassium of 3.3, chloride of 93, lipase < 10. UA shows trace ketones, 1+ blood, present squamous epithileal cells. In the ED course the pt was given IV fluids and morphine. Discussed the case with Dr. Butt, hospitalist, who accepted the pt for admission. Dx: abdominal pain, rule out ischemic colitis. - Diagnoses Differential Diagnosis/HQI/PQRI: Appendicitis, Bowel Obstruction, Constipation, Pancreatitis, Other - Ischemic colitis Provider Diagnoses: Abdominal pain - Provider Notifications Discussed Care Of Patient With: Almas Butt - hospitalist Time Discussed With Above Provider: 23:30 Instructed by Provider To: Admit As Inpatient Discharge ED - Sign-Out/Discharge Documenting (check all that apply): Patient Departure - [place] [facility] [place] Discharge Plan Condition: Stable Disposition: ADMITTED TO [facility] - Billing Disposition and Condition Condition: STABLE Disposition: Admitted to [facility] - Attestation Statements Document Initiated by Scribe: Yes Documenting Scribe: Jennie Escobar Provider For Whom Scribe is Documenting (Include Credential): Rojas Rodriguez MD Scribe Attestation: Jennie Mullins, scribed for Rojas Rodriguez MD on 01/29/19 at 1814. Scribe Documentation Reviewed: Yes Provider Attestation: The documentation as recorded by the Jennie rose accurately reflects the service I personally performed and the decisions made by me, Rojas Rodriguez MD Status of Scribe Document: Viewed
[2019-01-28] MEDS ORDERED: Morphine 4 MG/ML VIAL (1 ml) 4 MG/ML VIAL IV PRN (20:20)
[2019-01-28 20:26] LABS: ABS Basophils 0.1 10^3/ul (0-0.2); ABS Eosinophils 0.5 10^3/ul (0-0.6); ABS Lymphocytes 2.5 10^3/ul (1.0-4.8); ABS Monocytes 0.8 10^3/ul (0-0.8); ABS Neutrophils 5.8 10^3/ul (1.5-7.7); Eosinophil % 5.5 %; Hematocrit 47 % (42-52); Hemoglobin 16.1 g/dL (14.0-18.0); Lymphocyte % 25.3 %; Mean Corpuscular HGB Conc 34 g/dL (31-36); Mean Corpuscular Hemoglobin 30 pg (27-31); Mean Corpuscular Volume 88 fL (80-94); Mean Platelet Volume 7.5 fL (7.4-10.4); Nucleated Red Blood Cells % 0.3; Platelet Count 195 10^3/uL (150-450); Red Blood Count 5.33 10^6 /uL (4.18-5.48); Red Cell Distribution Width 14 % (10-15); White Blood Count 9.7 10^3/uL (3.5-10.8)
[2019-01-28 20:43] LABS: ALT 17 U/L (7-52); AST 17 U/L (13-39); Albumin 4.4 g/dL (3.2-5.2); Albumin/Globulin Ratio 1.3 (1-3); Alkaline Phosphatase 75 U/L (34-104); Anion Gap 10 mmol/L (2-11); BUN/Creatinine Ratio 14.9 (8-20); Blood Urea Nitrogen 18 mg/dL (6-24); C Reactive Protein 4.29 mg/L (<8.01); CO2 Carbon Dioxide 28 mmol/L (22-32); Calcium 9.9 mg/dL (8.6-10.3); Chloride 93 mmol/L (101-111); EGFR African American 71.1 (>60); EGFR Non-African American 58.8 (>60); Globulin 3.5 g/dL (2-4); Glucose 123 mg/dL (70-100); Potassium 3.3 mmol/L (3.5-5.0); Sodium 131 mmol/L (135-145); Total Protein 7.9 g/dL (6.4-8.9)
[2019-01-28 20:54] LABS: Troponin I 0.01 ng/mL (<0.04)
[2019-01-28] MEDS ORDERED: Iodixanol* (CONTRAST) 320 MG/ML 100 ML SDV IV ONE (21:14)
[2019-01-28 22:02] LABS: Urine Appearance Clear; Urine Bacteria Absent (Absent); Urine Bilirubin Negative (Negative); Urine Blood 1+ (Negative); Urine Color Straw; Urine Glucose Negative (Negative); Urine Ketones Trace (Negative); Urine Nitrite Negative (Negative); Urine Protein Negative (Negative); Urine Red Blood Cell Trace(0-2/hpf) (Absent); Urine Squamous Epithelial Cell Present (Absent); Urine Urobilinogen Negative (Negative); Urine White Blood Cell Absent (Absent)
[2019-01-29] MEDS ORDERED: Diazepam TAB(*) 5 MG PO PRN (01:40)
[2019-01-29] MEDS ORDERED: NS 0.9% 1000 ML** 1,000 ML IV SCH (02:00)
[2019-01-29] MEDS ORDERED: Atorvastatin* 20 MG TAB PO SCH (02:00)
[2019-01-29] MEDS ORDERED: hydrALAZINE IV* 20 MG/ML VIAL IV SLOW PU PRN (02:12)
[2019-01-29] MEDS: Propranolol TAB* 10 MG PO SCH ×2 (02:17→09:07)
[2019-01-29] MEDS ORDERED: Potassium Chloride* LIQUID 20 MEQ/15 ML UDC PO ONE (02:19)
[2019-01-29] MEDS ORDERED: Morphine INJ* 4 MG/ML 1 ML SYRINGE (NEW SYRINGE VERSION) IV PRN ×2 (02:46→02:47)
[2019-01-29] MEDS: Morphine INJ* 2 MG/ML 1 ML SYRINGE (TWO MG - NEW SYRINGE VERSION) IV PRN ×5 (03:23→14:29)
--- NOTE | 2019-01-29 04:59 | HP ---
HISTORY AND PHYSICAL: DATE OF ADMISSION: 01/29/19 ADMITTING PROVIDER: Almas Butt MD. PRIMARY CARE PROVIDER: Dr. Cerda. CHIEF COMPLAINT: 12/28 abdominal pain. HISTORY OF PRESENT ILLNESS: Enmanuel Boyle is a 74-year-old male with past medical history of hypertension, hyperlipidemia, former smoker, chronic pain stemming from a severe fall with multiple broken bones in the face and neck approximately 5 years ago, for which he has been on oxycodone since, and follicular lymphoma; in remission. For the last week, the patient has had new abdominal pain that has been controlled with his chronic pain meds, which are Percocet 2 tabs t.i.d. He awoke on 01/28/19 at 7 a.m. with the pain and that it was worse, progressed to 12/28 with some radiation from the lower abdomen into the epigastric region. It had never been this bad before. He does have a history of some stomach cramps, for which he has been taking Bentyl for several months. He presented to [facility] and workup with a CT abdomen and pelvis with IV contrast demonstrated bowel wall thickening in the right and proximal transverse colon and hepatic flexure, which could be secondary to incomplete distention. However, colitis could have a similar appearance. He does report that a few days ago, he had blood in his bowel movements. He does intermittently have blood in his bowel movements. Last colonoscopy he thinks was more than 5 years ago. His last bowel movement was 2 days prior to admission . Other medications include that he has been trying to wean off Lyrica 750 mg 4 times a day over the last several months and he was down to one a day and he had his last pill 4 days ago. He has been interested in going on Suboxone (plans to establish with [facility]) as he has been unable to wean himself off of the Percocet. He received several doses of IM morphine and was referred to hospitalist service with concern for need to rule out ischemic colitis. Other workup included no leukocytosis, afebrile, blood pressure was peaked at 197/108 in the setting of missing some of his propranolol. Denies any chest pain, shortness of breath, fevers, or chills. PAST MEDICAL HISTORY: 1. Hypertension. 2. Hyperlipidemia. 3. Chronic pain meds. 4. Former smoker. 5. Follicular lymphoma, in remission. MEDICATIONS: Include: 1. Oxycodone/acetaminophen 5 mg/325 mg 2 tabs p.o. t.i.d. 2. Bentyl 10 mg p.o. t.i.d. p.r.n. 3. Bupropion 150 mg p.o. daily. 4. Nexium 20 mg p.o. b.i.d. 5. Docusate 100 mg p.o. daily. 6. Valium 5 mg p.o. daily p.r.n. 7. Cholecalciferol 2000 units p.o. daily. 8. Lipitor 20 mg p.o. daily. 9. Aspirin 81 mg daily. 10. Hydrochlorothiazide 25 mg p.o. daily. 11. Propranolol 10 mg p.o. b.i.d. Also on his list is naproxen 220 mg p.o. b.i.d., but he is a very poor historian of whether or not he is actually taking this; he is confident he is not taking any ibuprofen. ALLERGIES: AMOXICILLIN, rash. SULFA, headache. SOCIAL HISTORY: The patient is a former smoker, approximately 8 years total with 15 pack- years, quit in 1971. He is a former heavy drinker, but he is not currently ingesting alcohol. His , Frieda Boyle, is his medical surrogate. He is a full code. FAMILY HISTORY: Father of kidney failure and diabetes at age 79. Mother at age 93. His brother has a history of diabetes. Father also reportedly had prostate cancer. REVIEW OF SYSTEMS: A complete 14-point review of systems is negative, except as per HPI. PHYSICAL EXAMINATION VITAL SIGNS: Temperature 97.9, heart rate 91, blood pressure initially 152/98; as high as 197/108, satting 98% on room air. HEENT: Normocephalic, atraumatic. Pupils equal, round, and reactive to light. Extraocular motions are intact. No scleral icterus. LUNGS: Clear to auscultation bilaterally with no wheezing, rales, or rhonchi. CARDIOVASCULAR: Regular rate and rhythm. No murmurs, rubs, or gallops. ABDOMEN: Soft, nontender to palpation, except in the lower left quadrant is mildly tender. No rebound. No guarding. EXTREMITIES: Warm, well perfused. No peripheral edema. SKIN: No lesions or rashes. DIAGNOSTIC STUDIES/LAB DATA: Labs: White count 9.7, hemoglobin 16.1, hematocrit 47, platelets 195. Sodium 131, potassium 3.3, chloride 93, carbon dioxide 28, BUN 18, creatinine 1.21, glucose 123, lactic acid 1.2. AST 17, total bili 0.9, ALT 17, alk phos 75. Troponin 0.01, CRP 4.3. Lipase less than 10. Urinalysis 1+ blood, trace ketones. Imaging: CT abdomen and pelvis with IV contrast demonstrated, impression: 1. Suggestive of wall thickening in the right and proximal transverse colon and hepatic flexure, which could be secondary to incomplete distention. However , colitis could have a similar appearance. Correlate with clinical history. 2. No enlarged abdominal lymph nodes. No splenomegaly. EKG demonstrated sinus rhythm with PVCs. No ST elevations or depressions. There is T-wave flattening in V3, poor R-wave progression. 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 He also had an episode of hematochezia a few days prior. The concern is for possible ischemic colitis versus peptic ulcer disease (does have naproxen listed , though he cannot verify if he actually takes this). He has required 4 mg of morphine followed by another 10 mg morphine in the ED and now the pain is currently 2/10. He is being admitted to observation status. Consider GI consult in the AM for potential flex sig/colonoscopy or EGD, especially if the hematochezia continues/returns. Continue his bowel regimen. Continue his blood pressure medications, propranolol 10 mg p.o. b.i.d. and hydrochlorothiazide 25 mg p.o. daily. He is uncontrolled here. I will continue his atorvastatin 20 mg daily, aspirin 81 mg daily, and Valium 5 mg p.o. daily. I wonder if his recent Lyrica discontinuation could be contributing to some of his complaints. I am going to put him n.p.o. with some of his IV fluids and IV pain meds p.r.n. until he can be further evaluated by GI and/or potentially Surgery in the morning. He is a full code. Medical surrogate is Frieda Boyle, his . [id number]/[facility]PS #: [id number] [facility]
[2019-01-29] MEDS ORDERED: cefTRIAXone(*) 1 GM in NS 0.9% 50 ML* 50 ML IVPB SCH (05:00)
[2019-01-29] MEDS: metroNIDAZOLE IV 500 MG/100ML* 500 MG/100 ML BAG IVPB SCH ×2 (05:22→14:30)
[2019-01-29 07:49] LABS: ABS Basophils 0.1 10^3/ul (0-0.2); ABS Eosinophils 0.5 10^3/ul (0-0.6); ABS Lymphocytes 2.3 10^3/ul (1.0-4.8); ABS Monocytes 0.8 10^3/ul (0-0.8); ABS Neutrophils 4.5 10^3/ul (1.5-7.7); Hematocrit 43 % (42-52); Hemoglobin 14.6 g/dL (14.0-18.0); Lymphocyte % 28.2 %; Mean Corpuscular HGB Conc 34 g/dL (31-36); Mean Corpuscular Hemoglobin 30 pg (27-31); Mean Corpuscular Volume 89 fL (80-94); Mean Platelet Volume 7.7 fL (7.4-10.4); Nucleated Red Blood Cells % 0.1; Platelet Count 184 10^3/uL (150-450); Red Blood Count 4.84 10^6 /uL (4.18-5.48); Red Cell Distribution Width 14 % (10-15); White Blood Count 8.2 10^3/uL (3.5-10.8)
[2019-01-29] MEDS ORDERED: Aspirin 81 mg CHEW TAB* 81 MG TAB.CHEW PO SCH (09:00)
[2019-01-29] MEDS ORDERED: Pantoprazole TAB * 40 MG TAB PO SCH (09:00)
[2019-01-29] MEDS ORDERED: BuPROPion XL* 150 MG TAB.XL PO SCH (09:00)
[2019-01-29] MEDS ORDERED: Cholecalciferol TAB* 1000 UNITS PO SCH (09:00)
[2019-01-29] MEDS ORDERED: Docusate CAP* 100 MG PO SCH (09:00)
[2019-01-29] MEDS ORDERED: Hydrochlorothiazide TAB* 25 MG PO SCH (09:00)
[2019-01-29] MEDS ORDERED: Magnesium Hydroxide LIQ* 30 ML UDC PO ONE (09:56)
[2019-01-29] MEDS: Ondansetron INJ* 2 MG/ML VIAL IV PRN ×2 (10:14→15:30)
[2019-01-29 17:57] VITALS: BP 134/64
--- NOTE | 2019-01-29 20:25 | DS ---
CC: Dr. Scott Cerda.* DISCHARGE SUMMARY: DATE OF ADMISSION: 01/29/19 DATE OF DISCHARGE: 01/29/19 PRIMARY CARE PROVIDER: Dr. Scott Cerda. ATTENDING PHYSICIAN: Dr. Leah Butcher.* (DICTATED BY GORDO GONG NP) PRIMARY DIAGNOSIS: 1. Abdominal pain of unknown etiology. SECONDARY DIAGNOSES: 1. Hypertension. 2. Hyperlipidemia. 3. Chronic pain. 4. Follicular lymphoma, in remission. STUDIES WHILE IN THE HOSPITAL: 1. Abdomen and pelvis CT on 01/28/19 reads as suggested bowel wall thickening in the right and proximal transverse colon and hepatic flexure, which could be secondary to incomplete distention, however, colitis could have a similar appearance, correlate with clinical history. No enlarged abdominal lymph nodes , no splenomegaly. 2. EKG on 01/28/19 shows normal sinus rhythm, rate of 79, 1 PVC. This EKG appears consistent with previous EKG on file. HISTORY OF PRESENT ILLNESS AND HOSPITAL COURSE: Mr. Boyle is a 74-year-old male with a past medical history of hypertension, hyperlipidemia, chronic pain and follicular lymphoma in remission, who presents to the emergency room on 01/06 with complaints of abdominal pain. Please see the history and physical by Dr. Butt for complete summary of the events leading up to this hospitalization. In short, the patient woke on Tuesday with abdominal pain, which worsened throughout the day. He does have a history of abdominal cramping for which he takes Bentyl though this pain was different. He did report 1 episode of a small amount of blood in his stool a few days prior and admitted to nausea and vomiting at home. In the emergency room, he had imaging as noted above. He had lab work, which was eventually unremarkable except for a mild hypokalemia. He was noted to be hypertensive. Vital signs were otherwise stable. He was admitted by the hospitalist service. The patient had an uneventful night. He reports that his pain resolved around 3 a.m. today. He was started on ceftriaxone and Flagyl because of concern for possible colitis. He has experienced some further nausea, which is relieved with Zofran. He was n.p.o. overnight, but was able to tolerate clear liquids mid day today. For dinner today, he will have a soft diet. After speaking with the patient's , it sounds as though the blood noted in his stool a few days ago was likely due to hemorrhoids. She notes that it was bright red and it was smaller than a jonathan size. At this point, the cause of abdominal pain is not clear. Differential includes ischemic colitis, infectious colitis, peptic ulcer disease, or viral illness. Today the patient was feeling better and would like to return home. On exam, he is alert and oriented x4. He has no focal neurological deficits. His heart has a regular rate and rhythm without murmurs, rubs or gallops. His lungs are clear to auscultation without rhonchi, wheezes or rubs. Abdomen is soft, very mildly tender throughout. Bowel sounds are normoactive. Mr. Boyle is stable for discharge today. Most recent vitals are as follows: Temp 98.0, heart rate 74, respiratory rate 20, oxygen saturation 94% on room air , blood pressure 145/82. DISCHARGE MEDICATIONS: New medications: 1. Ciprofloxacin 500 mg p.o. b.i.d. x 4 days. 2. Flagyl 500 mg p.o. t.i.d. x 4 days. 3. Ondansetron ODT 4 mg sublingual q. 6 hours p.r.n. nausea and vomiting. Continued medications: 1. Aspirin 81 mg p.o. daily. 2. Atorvastatin 20 mg p.o. daily. 3. Bupropion 150 mg p.o. daily. 4. Cholecalciferol 2000 units p.o. daily. 5. Diazepam 5 mg p.o. daily p.r.n. anxiety. 6. Docusate 100 mg p.o. daily. 7. Esomeprazole 20 mg p.o. b.i.d. 8. Hydrochlorothiazide 25 mg p.o. daily. 9. Propranolol 10 mg p.o. b.i.d. 10. Bentyl 10 mg p.o. t.i.d. p.r.n. abdominal pain. 11. Percocet 5/325 2 tabs p.o. t.i.d. Discontinued medications: 1. Naproxen. DISCHARGE PLAN: Mr. Boyle will be discharged to home. Activity will be as tolerated. Diet will be as tolerated. I have advised the patient that he should advance his diet slowly and at this point should start with clear and full liquids and a small amount of soft food. Medications are as noted above. I have sent in prescriptions for 4 days of ciprofloxacin and Flagyl to complete a total of 5 days of antibiotic therapy for a possible colitis. I have also sent in a prescription for Zofran for any recurrent nausea. Because of the concern for possible peptic ulcer, the patient should no longer take Naprosyn or any NSAIDs. He should follow up with his primary care provider in the next 4 to 7 days. At that point, he can discuss with his primary care provider the need for possible EGD or colonoscopy if symptoms persists. He is already on a PPI twice daily, so is on optimal therapy. He should return to the emergency room or nearest hospital for any worsening symptoms, shortness of breath, lightheadedness, dizziness, chest discomfort, high fevers, chills, night sweats , loss of consciousness, or any other worrisome signs or symptoms. DISCHARGE CONDITION: Stable. DISCHARGE DISPOSITION: Home. This is a summarized report of a complex medical history and hospital stay. For further details, please see the entire medical record. TIME SPENT: Approximately 50 minutes was spent on this discharge. GORDO GONG NP [id number]/[facility] #: [id number] CONNIE
== END 2019-01-29 17:55 | disposition home or self-care (01) ==
LOC: ED 19:55 → MEDTELE 01-29 01:38
PROVIDERS: ADMIT Internal Medicine; ATTEND Internal Medicine
DX: R10.9 Unspecified abdominal pain (principal); I10 Essential (primary) hypertension; C82.90 Follicular lymphoma, unspecified, unspecified site; E78.5 Hyperlipidemia, unspecified; G89.29 Other chronic pain; Z87.891 Personal history of nicotine dependence; Z79.82 Long term (current) use of aspirin; Z79.899 Other long term (current) drug therapy; K21.9 Gastro-esophageal reflux disease without esophagitis; K59.00 Constipation, unspecified
CPT/HCPCS: 36415; 74177; 80053; 81003; 81015; 83605; 83690; 84484; 85025; 86140; 93005; 96361; 96365; 96366; 96375; 96376; 99285; A9270-GY; G0378; J0696; J2270; J2405; Q9967

== ENCOUNTER 2019-02-01 14:59 | Emergency (ER) | payer MEDICARE, BC ==
[2019-02-01] MEDS ORDERED: fentaNYL* 50 MCG/ML 2 ML VIAL (100 MCG VIAL) IV SLOW PU ONE ×2 (15:55→17:14)
--- NOTE | 2019-02-01 15:55 | ED ---
Abdominal Pain/Male - HPI Summary HPI Summary: Patient is a 74 y/o M presenting to the ED for a chief complaint of diffuse intermittent abdominal pain. Patient was previously seen at [facility] by [facility]. Rojas Rodriguez on 01/28/19 for the same symptoms and had an Abdomen/Pelvis CT and labs with unremarkable findings performed at that time. Patient was admitted to [facility] with a diagnosis of colitis and intractable abdominal pain and discharged on 01/29/19 with antibiotics including Ciprofloxacin. The abdominal pain was resolved at discharge from [facility], but has since returned. Patient denies blood in the stool, including a recent stool sample taken when admitted at [facility]. Patient reports his stool is brown in color and not unusually malodorous. He notes diarrhea, decreased food intake, and nausea. Patient denies fever, constipation, dysuria, or urinary burning. PMHx is significant for HTN for which the patient takes a statin, HCTZ, indoral, and propranolol. Patient denies a history of blood clots. Patient's reports the patient has taken oxycodone for chronic pain from a fall that occurred [address] Patients contacted [address] Horta through a patient portal. Patient takes 81 mg aspirin for the last year, but has not taken the aspirin for the last few days. - History of Current Complaint Chief Complaint: EDAbdPain Stated Complaint: ABD PAIN PER PT Time Seen by Provider: 02/01/19 15:23 Hx Obtained From: Patient, Family/Atmospheric Sciences Professor - Onset/Duration: Sudden Onset, Lasting Days, Still Present Timing: Intermittent, Lasting Days Severity Initially: Moderate Severity Currently: Moderate Pain Intensity: 5 Pain Scale Used: 0-10 Numeric Location: Diffuse Radiates: No Aggravating Factor(s): Nothing Alleviating Factor(s): Nothing Associated Signs And Symptoms: Positive: Nausea, Diarrhea, Other - Positive decreased food intake. Negative: Fever, Constipation, Blood in Stool, Urinary Symptoms - Negative dysuria or urinary burning - Allergies/Home Medications Allergies/Adverse Reactions: Allergies Allergy/AdvReac Type Severity Reaction Status Date / Time amoxicillin Allergy Mild Rash Verified 02/01/19 15:06 Sulfa (Sulfonamide Allergy Mild Headache Verified 02/01/19 15:06 Antibiotics) Home Medications: Home Medications Bupropion XL* [Wellbutrin XL *] 150 mg PO DAILY 02/01/19 [History Confirmed ] Dicyclomine CAP* [Bentyl CAP*] 10 mg PO TID PRN 02/01/19 [History Confirmed ] Docusate CAP* [Colace Cap*] 100 mg PO DAILY 02/01/19 [History Confirmed 02/01/19 ] PMH/Surg Hx/FS Hx/Imm Hx Previously Healthy: Yes Endocrine/Hematology History: Denies: Hx Diabetes, Hx Systemic Lupus Erythematosus Cardiovascular History: Reports: Hx Hypertension Denies: Hx Congestive Heart Failure, Hx Pacemaker/ICD GI History: Reports: Hx Gastroesophageal Reflux Disease, Other GI Disorders - constipation, epigastric "ache" History: Denies: Hx Dialysis, Hx Renal Disease Musculoskeletal History: Reports: Hx Back Problems - post trauma fall, Hx Orthopedic Injury - shattered tibia/fx cerv vert Denies: Hx Rheumatoid Arthritis Sensory History: Reports: Hx Contacts or Glasses - not with pt, Hx Eye Injury - with trauma fall, Hx Hearing Problem Denies: Hx Cataracts, Hx Legally Blind, Hx Deafness, Hx Hearing Aid Opthamlomology History: Reports: Hx Contacts or Glasses - not with pt, Hx Eye Injury - with trauma fall Denies: Hx Cataracts, Hx Legally Blind EENT History: Denies: Hx Deafness Psychiatric History: Reports: Hx Anxiety, Hx Depression Denies: Hx Eating Disorder, Hx Panic Disorder, Hx of Violent Episodes Against Others - Cancer History Cancer Type, Location and Year: follicular lymphoma Hx Chemotherapy: Yes - Surgical History Surgical History: Yes Surgery Procedure, Year, and Place: metal plate in left wrist in 2014 at age 68 - Immunization History Date of Tetanus Vaccine: up to date per pt/family Infectious Disease History: No Infectious Disease History: Denies: History Other Infectious Disease, Traveled Outside the [place] in Last 30 Days - Family History Known Family History: Positive: Other - GERD - Social History Occupation: Retired Lives: With Family Alcohol Use: None Alcohol Amount: pt quit drinking 3 years. Hx Substance Use: No Substance Use Type: Reports: None Hx Tobacco Use: Yes - not since the 1970s Smoking Status (MU): Former Smoker Review of Systems Positive: Other - Positive decreased food intake. Negative: Fever Positive: Abdominal Pain - Diffuse, Diarrhea, Nausea. Negative: Other - Negative blood in stool or constipation Negative: burning - Urinary, dysuria All Other Systems Reviewed And Are Negative: Yes Physical Exam - Summary Physical Exam Summary: Constitutional: Well-developed, Well-nourished, Alert. (-) Distressed Skin: Warm, Dry HENT: Normocephalic; Atraumatic Eyes: Conjunctiva normal Neck: Musculoskeletal ROM normal neck. (-) JVD, (-) Stridor, (-) Tracheal deviation Cardio: Rhythm regular, rate normal, Heart sounds normal; Intact distal pulses; The pedal pulses are 2+ and symmetric. Radial pulses are 2+ and symmetric. Pulmonary/Chest wall: Effort normal. (-) Respiratory distress, (-) Wheezes, (-) Rales Abd: (-) Distension, (-) Guarding, (-) Rebound. Slightly firm abdomen with diffuse tenderness that is not well localized. Musculoskeletal: (-) Edema Neuro: Alert, Oriented x3 Psych: Mood and affect Normal Triage Information Reviewed: Yes Vital Signs On Initial Exam: Initial Vitals Temp Pulse Resp BP Pulse Ox 97.2 F 75 20 139/89 96 02/01/19 15:03 02/01/19 15:03 02/01/19 15:03 02/01/19 15:03 02/01/19 15:03 Vital Signs Reviewed: Yes Procedures - Sedation Patient Received Moderate/Deep Sedation with Procedure: No Diagnostics - Vital Signs Vital Signs Temp Pulse Resp BP Pulse Ox 02/01/19 15:03 97.2 F 75 20 139/89 96 - Laboratory Result Diagrams: 02/01/19 15:49 02/01/19 15:49 Lab Statement: Any lab studies that have been ordered have been reviewed, and results considered in the medical decision making process. - Radiology Chest X-ray Radiology Interpretation Completed By: Radiologist Summary of Radiographic Findings: Chest X-ray IMPRESSION: NO ACTIVE CARDIOPULMONARY DISEASE. NO SUBPHRENIC GAS. Reviewed by Dr. Oviedo. - CT Abdomen/Pelvis CTA CT Interpretation Completed By: Radiologist Summary of CT Findings: Abdomen/Pelvis CTA IMPRESSION: ATHEROSCLEROSIS. THE SPLANCHNIC VESSELS ARE WIDELY PATENT WITHOUT SIGNIFICANT STENOSIS OR OCCLUSION. Reviewed by Dr. Oviedo. - EKG 15:58 Cardiac Rate: NL - 66 BPM EKG Rhythm: Sinus Rhythm ST Segment: Normal Ectopy: None Summary of EKG Findings: An EKG at 15:58 reveals 66 BPM, nml axis, nml intervals. No STEMI. No acute changes. Inferior Q-waves same as prior from 01/28. PVCs on previous EKG on 01/28/19 no longer seen. Reviewed and interpreted by Dr. Oviedo. Abdominal Pain Male Course/Dx - Course Course Of Treatment: Patient is a 74 y/o M presenting to the ED for a chief complaint of diffuse intermittent abdominal pain. Patient was previously seen at [facility] by Dr. Rojas Rodriguez on 01/28/19 for the same symptoms and had an Abdomen/Pelvis CT and labs with unremarkable findings performed at that time. Patient was admitted to [facility] with a diagnosis of colitis and intractable abdominal pain and discharged on 01/29/19 with antibiotics including Ciprofloxacin. The abdominal pain was resolved at discharge from [facility], but has since returned. Patient denies blood in the stool, including a recent stool sample taken when admitted at [facility]. Patient reports his stool is brown in color and not unusually malodorous. He notes diarrhea, decreased food intake, and nausea. Patient denies fever, constipation, dysuria, or urinary burning. PMHx is significant for HTN for which the patient takes a statin, HCTZ, indoral, and propranolol. Patient denies a history of blood clots. Patient's reports the patient has taken oxycodone for chronic pain from a fall that occurred [address] Patients contacted Dr[address] Horta through a patient portal. Patient takes 81 mg aspirin for the last year, but has not taken the aspirin for the last few days. On exam, slightly firm abdomen with diffuse tenderness that is not well localized. In the ED course, patient was given fentanyl 50 mcg IV SLOW and iodixanol 99 ml IV. All other abnormal lab results are not pertinent to current cc. An EKG at 15:58 reveals 66 BPM, nml axis, nml intervals. No STEMI. No acute changes. Inferior Q-waves same as prior from 01/28. PVCs on previous EKG on 01/28/19 no longer seen. Chest X-ray IMPRESSION: NO ACTIVE CARDIOPULMONARY DISEASE. NO SUBPHRENIC GAS. Abdomen/Pelvis CTA IMPRESSION: ATHEROSCLEROSIS. THE SPLANCHNIC VESSELS ARE WIDELY PATENT WITHOUT SIGNIFICANT STENOSIS OR OCCLUSION. At 18:02, Dr. Caity Garcia agrees to admit the patient to [facility] with a diagnosis of intractable abdominal pain. Patient will be admitted to [facility] with a diagnosis of intractable abdominal pain. - Diagnoses Provider Diagnoses: Intractable abdominal pain - Provider Notifications Discussed Care Of Patient With: Caity Garcia - At 18:02, Dr. Caity Garcia agrees to admit the patient to [facility] with a diagnosis of intractable abdominal pain. Time Discussed With Above Provider: 18:02 Instructed by Provider To: Admit As Inpatient Discharge ED - Sign-Out/Discharge Documenting (check all that apply): Patient Departure - Admit - Discharge Plan Condition: Stable Disposition: ADMITTED TO [facility] Referrals: Scott Cerda MD [Primary Care Provider] - - Attestation Statements Document Initiated by Scribe: Yes Documenting Scribe: Tomasa Braden Provider For Whom Scribe is Documenting (Include Credential): Dany Oviedo MD Scribe Attestation: ITomasa, scribed for Dany Oviedo MD on 02/01/19 at 1805. Status of Scribe Document: Ready
[2019-02-01 15:59] LABS: ABS Basophils 0.1 10^3/ul (0-0.2); ABS Eosinophils 0.6 10^3/ul (0-0.6); ABS Lymphocytes 1.6 10^3/ul (1.0-4.8); ABS Monocytes 0.6 10^3/ul (0-0.8); ABS Neutrophils 3.4 10^3/ul (1.5-7.7); Eosinophil % 9.4 %; Hematocrit 43 % (42-52); Hemoglobin 14.8 g/dL (14.0-18.0); Lymphocyte % 25.5 %; Mean Corpuscular HGB Conc 34 g/dL (31-36); Mean Corpuscular Hemoglobin 31 pg (27-31); Mean Corpuscular Volume 89 fL (80-94); Mean Platelet Volume 7.6 fL (7.4-10.4); Nucleated Red Blood Cells % 0.1; Platelet Count 192 10^3/uL (150-450); Red Blood Count 4.85 10^6 /uL (4.18-5.48); Red Cell Distribution Width 14 % (10-15); White Blood Count 6.4 10^3/uL (3.5-10.8)
[2019-02-01 16:08] LABS: Activated Partial Thrombo Time 29.8 seconds (26.0-38.0); INR 1.19 (0.82-1.09)
[2019-02-01 16:20] LABS: ALT 47 U/L (7-52); AST 50 U/L (13-39); Albumin 3.9 g/dL (3.2-5.2); Albumin/Globulin Ratio 1.3 (1-3); Alkaline Phosphatase 60 U/L (34-104); Anion Gap 6 mmol/L (2-11); Blood Urea Nitrogen 12 mg/dL (6-24); CO2 Carbon Dioxide 29 mmol/L (22-32); Calcium 9.1 mg/dL (8.6-10.3); Chloride 100 mmol/L (101-111); EGFR African American 71.8 (>60); EGFR Non-African American 59.3 (>60); Globulin 3.1 g/dL (2-4); Glucose 118 mg/dL (70-100); Indirect Bilirubin 0.6 mg/dL (0.3-1.0); Potassium 3.5 mmol/L (3.5-5.0); Sodium 135 mmol/L (135-145); Troponin I 0.01 ng/mL (<0.04)
[2019-02-01] MEDS ORDERED: Iodixanol* (CONTRAST) 320 MG/ML 100 ML SDV IV ONE (16:35)
[2019-02-01 18:26] LABS: Urine Appearance Clear; Urine Bacteria Absent (Absent); Urine Bilirubin Negative (Negative); Urine Blood 1+ (Negative); Urine Color Yellow; Urine Glucose Negative (Negative); Urine Ketones Negative (Negative); Urine Nitrite Negative (Negative); Urine Protein Negative (Negative); Urine Red Blood Cell Trace(0-2/hpf) (Absent); Urine Specific Gravity 1.046 (1.010-1.030); Urine Urobilinogen Negative (Negative); Urine White Blood Cell Absent (Absent)
[2019-02-01] MEDS ORDERED: Ketorolac INJ* 30 MG/ML 1 ML VIAL IV PUSH ONE (19:04)
[2019-02-01] MEDS ORDERED: Morphine 4 MG/ML VIAL (1 ml) 4 MG/ML VIAL IV ONE (19:33)
[2019-02-01 21:08] VITALS: BP 158/77
== END 2019-02-01 21:07 | disposition home or self-care (01) ==
LOC: ED 14:59
DX: R10.9 Unspecified abdominal pain (principal); I10 Essential (primary) hypertension; K21.9 Gastro-esophageal reflux disease without esophagitis; Z87.891 Personal history of nicotine dependence; Z79.899 Other long term (current) drug therapy; Z88.0 Allergy status to penicillin; Z88.2 Allergy status to sulfonamides; I70.0 Atherosclerosis of aorta; K42.9 Umbilical hernia without obstruction or gangrene
CPT/HCPCS: 36415; 71045; 74174; 80048; 80076; 81003; 81015; 83605; 83690; 84484; 85025; 85610; 85730; 93005; 96374; 96375; 96376; 99283; J1885; J2270; J3010; Q9967

== ENCOUNTER 2019-03-09 10:32 | Day surgery (SDC) | payer MEDICARE, BC ==
[~2019-03-09 10:32] MED LIST: Buffered Lidocaine 1% SYRIN* 1 ML/SYRINGE INTRADERM ONE; Famotidine IV* 10 MG/ML 2 ML (20 mg) IV ONE; Lactated Ringers 1000 ML Bag* 1,000 ML IV SCH
[2019-03-09] MEDS ORDERED: Famotidine IV* 10 MG/ML 2 ML (20 mg) ONE (11:05)
[2019-03-09] MEDS ORDERED: Ondansetron INJ* 2 MG/ML VIAL ONE (11:30)
[2019-03-09] MEDS ORDERED: Lidocaine 2% PF * 5 ML VIAL ONE (11:30)
[2019-03-09] MEDS ORDERED: fentaNYL* 50 MCG/ML 2 ML VIAL (100 MCG VIAL) ONE (11:30)
[2019-03-09] MEDS ORDERED: Midazolam* 1 MG/ML 5 ML VIAL (5 MG) ONE (11:30)
[2019-03-09] MEDS ORDERED: Propofol* 10 MG/ML 20 ML BTL ONE ×2 (11:30→12:30)
[2019-03-09] MEDS ORDERED: KETAMINE HCL* 50 MG/ML 10 ML VIAL ONE (11:31)
[2019-03-09] MEDS ORDERED: Naloxone* 0.4 MG/ML 1 ML VIAL IV PRN (11:53)
[2019-03-09] MEDS ORDERED: fentaNYL* 50 MCG/ML 2 ML VIAL (100 MCG VIAL) IV PRN (11:53)
[2019-03-09] MEDS ORDERED: Ondansetron INJ* 2 MG/ML VIAL IV PRN (11:53)
[2019-03-09 20:44] VITALS: BP 145/82
--- NOTE | 2019-03-10 01:33 | PRO ---
CC: Dr. Scott Cerda* EGD AND COLONOSCOPY REPORT: DATE OF SERVICE: 03/09/19 INDICATIONS FOR PROCEDURE: Abdominal pain. PROCEDURE PERFORMED: Complete esophagogastroduodenoscopy with biopsies and complete colonoscopy to the terminal ileum. MEDICATIONS GIVEN: Please see anesthesia record. DESCRIPTION OF PROCEDURE: After the EGD and colonoscopy procedure including the risks, benefits, and alternatives with the risks not limited to perforation , surgery, missed lesions, and/or were explained to the patient, written informed consent was obtained. IV medication was given and a bite-block was placed between the teeth. The adult Olympus gastroscope was then inserted into the patient's oropharynx into the tubular esophagus. The tubular esophagus was normal in appearance without any variability of the Z-line. The scope was advanced through the lower esophageal sphincter into the stomach. Direct views in both antegrade and retroflexion were normal. I did take a biopsy for CLOtesting. The scope was advanced through the widely patent pylorus, into the duodenum bulb, C- loop, distal duodenum, and these were normal in appearance. The scope was then removed from the patient. He tolerated the procedure well. He was then rotated and given additional IV sedation medication. A rectal exam was performed and the rectal exam was unremarkable. The adult Olympus colonoscope was then inserted into the patient's rectum and advanced very carefully through the entirety of the colon into the cecal base. Cecal base was carefully inspected and normal in appearance. The terminal ileal valve was normal in appearance. A photograph was taken of the cecal cap. The colon was incredibly floppy and redundant, but was otherwise normal. Over the next 9 minutes, the scope was carefully withdrawn inspecting the mucosa. On return to the rectum, direct views were normal. On retroflexion, grade I internal hemorrhoids were appreciated. The scope was then removed from the patient. He tolerated the procedure well. He returned to the recovery room in stable condition. IMPRESSION: 1. Complete esophagogastroduodenoscopy with biopsies. 2. Normal EGD. 3. Biopsies were taken for CLOtesting. 4. Complete colonoscopy to the cecum. 5. Good prep. 6. Floppy redundant colon, but normal. 7. Grade I internal hemorrhoids. RECOMMENDATIONS: Suspect the etiology of his abdominal pain is related to constipation. He takes MiraLAX daily and still has ineffective bowel movements. We will increase it to b.i.d. If he is still having difficulty, he can follow up with Matilda Ruelas in the office. I will follow up on the results of his CLOtesting, but essentially the testing today was unremarkable. [id number]/[facility] #: [id number] MTDD
== END 2019-03-09 13:48 | disposition home or self-care (01) ==
LOC: OR 10:32
PROVIDERS: ATTEND Internal Medicine Gastroenterology
DX: R10.84 Generalized abdominal pain (principal); K21.9 Gastro-esophageal reflux disease without esophagitis; K59.00 Constipation, unspecified; R10.32 Left lower quadrant pain; Z85.72 Personal history of non-Hodgkin lymphomas; Z87.891 Personal history of nicotine dependence; K64.8 Other hemorrhoids
CPT/HCPCS: 87077; J2250; J2405; J2704; J3010

== ENCOUNTER 2019-12-13 10:58 | Inpatient (IN) ==
[~2019-12-13 10:58] MED LIST changes: +Buffered Lidocaine 1% SYRIN 1 ml INTRADERM ONE; -Buffered Lidocaine 1% SYRIN* 1 ML/SYRINGE INTRADERM ONE; +Famotidine IV 10 MG/ML 2 ml VIAL (20 mg) IV ONE; -Famotidine IV* 10 MG/ML 2 ML (20 mg) IV ONE; -Lactated Ringers 1000 ML Bag* 1,000 ML IV SCH; +Lactated Ringers 1000 ml BAG 1,000 ML IV SCH
[2019-12-13] MEDS ORDERED: Famotidine IV 10 MG/ML 2 ml VIAL (20 mg) ONE (11:27)
[2019-12-13] MEDS ORDERED: Clindamycin 900 MG/D5W BAG 900 MG/50 ML BAG IVPB ONE (11:27)
[2019-12-13] MEDS ORDERED: Buffered Lidocaine 1% SYRIN 1 ml INTRADERM ONE (11:32)
[2019-12-13] MEDS ORDERED: Midazolam 5 mg/5 ml VIAL 1 mg/ml 5 ml VIAL (5 mg) ONE (11:36)
[2019-12-13] MEDS ORDERED: Propofol 10 MG/ML 20 ML BTL ONE (11:36)
[2019-12-13] MEDS ORDERED: Dexamethasone IV 4 MG/ML VIAL 1 ml VIAL ONE (11:36)
[2019-12-13] MEDS ORDERED: Ondansetron 4 mg VIAL 2 MG/ML 2 ml VIAL ONE (11:36)
[2019-12-13] MEDS ORDERED: Lidocaine 2% PF 5 ML VIAL ONE (11:36)
[2019-12-13] MEDS ORDERED: fentaNYL 100 mcg/2 ml 50 MCG/ML VIAL ONE ×3 (11:36→15:46)
[2019-12-13] MEDS ORDERED: Ketamine HCL 50 mg/ml 10 ml VIAL (500 MG) ONE (11:36)
[2019-12-13] MEDS ORDERED: Artificial Tear OPHTH.OINT 3.5 GM ONE (12:28)
[2019-12-13] MEDS ORDERED: Rocuronium 50 mg VIAL 10 mg/ml 5 ml VIAL (50 mg) ONE (12:31)
[2019-12-13] MEDS ORDERED: Phenylephrine IV 10 MG/ML 1 ml VIAL ONE (12:31)
[2019-12-13] MEDS ORDERED: fentaNYL 250 mcg/5 ml 50 MCG/ML 5 ml VIAL (250 MCG) ONE (13:10)
[2019-12-13] MEDS ORDERED: EPHEDrine (Pressors) 50 MG/ML VIAL ONE (13:23)
[2019-12-13] MEDS ORDERED: Acetaminophen IV 1 GM/100ML 100 ML ONE (13:32)
[2019-12-13] MEDS ORDERED: ROPIVACAINE 5 MG/ML 30 ML BTL (0.5%) ONE (13:41)
[2019-12-13] MEDS ORDERED: HYDROmorphone 1 MG/1 ML SYRINGE ONE ×2 (14:42→16:01)
[2019-12-13] MEDS ORDERED: HYDROmorphone 1 MG/1 ML SYRINGE IV PRN (14:44)
[2019-12-13] MEDS ORDERED: Ondansetron 4 mg VIAL 2 MG/ML 2 ml VIAL IV PRN ×2 (14:44→15:22)
[2019-12-13] MEDS ORDERED: Naloxone 0.4 mg VIAL 0.4 mg/ml 1 ml VIAL IV PRN (14:44)
[2019-12-13] MEDS ORDERED: Ondansetron ODT 4 mg TAB 4 MG TAB PO PRN (15:22)
[2019-12-13] MEDS ORDERED: diPHENhydraMINE IV 50 MG/ML 1 ml VIAL (BENADRYL) IV PRN (15:22)
[2019-12-13] MEDS ORDERED: Magnesium Hydroxide LIQ 30 ML UDC PO PRN (15:22)
[2019-12-13] MEDS ORDERED: oxyCODONE/Acetamin 5/325 mg TAB PO PRN (15:22)
[2019-12-13] MEDS ORDERED: diPHENhydraMINE 25 mg TAB PO PRN (15:22)
[2019-12-13] MEDS ORDERED: Lactulose 30 ml UDC PO PRN (15:22)
[2019-12-13] MEDS ORDERED: Morphine 2 MG/ML SYRINGE IV PRN (15:22)
[2019-12-13] MEDS: fentaNYL 100 mcg/2 ml 50 MCG/ML VIAL IV PRN ×4 (15:30→15:55)
[2019-12-13] MEDS: Lactated Ringers 1000 ml BAG 1,000 ML IV SCH (18:21)
[2019-12-13] MEDS: oxyCODONE/Acetamin 5/325 mg TAB PO PRN (18:52)
[2019-12-13] MEDS: Clindamycin 600 MG/D5W BAG 600 MG/50 ML BAG IV SCH (21:56)
[2019-12-13] MEDS: Magnesium Hydroxide LIQ 30 ML UDC PO SCH (21:58)
[2019-12-14] MEDS: Lactated Ringers 1000 ml BAG 1,000 ML IV SCH (03:15)
[2019-12-14] MEDS: oxyCODONE/Acetamin 5/325 mg TAB PO PRN ×3 (04:02→12:17)
[2019-12-14] MEDS: Clindamycin 600 MG/D5W BAG 600 MG/50 ML BAG IV SCH ×2 (04:03→12:18)
[2019-12-14 06:09] LABS: Hematocrit 33 % (42-52); Hemoglobin 11.2 g/dL (14.0-18.0); Platelet Count 151 10^3/uL (150-450)
[2019-12-14 06:28] LABS: BUN/Creatinine Ratio 17.6 (8-20); Calcium 8.2 mg/dL (8.6-10.3); EGFR African American 98.8 (>60); EGFR Non-African American 81.7 (>60); Potassium 3.9 mmol/L (3.5-5.0)
[2019-12-14] MEDS: Magnesium Hydroxide LIQ 30 ML UDC PO SCH (08:02)
[2019-12-14] MEDS ORDERED: Vitamin THERAPEUTIC TAB PO SCH (09:00)
[2019-12-14 11:32] VITALS: BP 92/56
== END 2019-12-14 13:51 | disposition home or self-care (01) | DRG 470 ==
LOC: AA 10:58 → SSU 17:23
PROVIDERS: ADMIT Orthopaedic Surgery Adult Reconstructive Orthopaedic Surgery; ATTEND Orthopaedic Surgery Adult Reconstructive Orthopaedic Surgery

== ENCOUNTER 2021-04-02 13:15 | Observation (INO) ==
[2021-06-25] MEDS ORDERED: Buffered Lidocaine 1% SYRIN 1 ml INTRADERM ONE (06:00)
[2021-06-25] MEDS ORDERED: Lactated Ringers 1000 ml BAG 1,000 ML IV SCH (06:00)
[2021-06-25] MEDS ORDERED: Midazolam 2 mg/2 ml VIAL 1 mg/ml 2 ml VIAL (2 mg) ONE (11:03)
[2021-06-25] MEDS ORDERED: Lidocaine 2% PF 5 ML VIAL ONE (11:03)
[2021-06-25] MEDS ORDERED: fentaNYL 100 mcg/2 ml 50 MCG/ML VIAL ONE ×2 (11:03→15:52)
[2021-06-25] MEDS ORDERED: Phenylephrine IV 10 MG/ML 1 ml VIAL ONE (11:03)
[2021-06-25] MEDS ORDERED: Clindamycin 900 MG/D5W BAG 900 MG/50 ML BAG IVPB ONE (11:20)
[2021-06-25] MEDS ORDERED: fentaNYL 250 mcg/5 ml 50 MCG/ML 5 ml VIAL (250 MCG) ONE (12:13)
[2021-06-25] MEDS ORDERED: Rocuronium 50 mg VIAL 10 mg/ml 5 ml VIAL (50 mg) ONE (12:13)
[2021-06-25] MEDS ORDERED: Propofol 10 MG/ML 20 ML BTL ONE (12:13)
[2021-06-25] MEDS ORDERED: Acetaminophen IV 1 GM/100ML 100 ML IV PRN (12:27)
[2021-06-25] MEDS ORDERED: Naloxone 0.4 mg VIAL 0.4 mg/ml 1 ml VIAL IV PRN (12:27)
[2021-06-25] MEDS ORDERED: DiMENhydriNATE IV 50 mg/ml 1 ml VIAL IV PUSH PRN (12:27)
[2021-06-25] MEDS ORDERED: Ondansetron 4 mg VIAL 2 MG/ML 2 ml VIAL IV PRN ×2 (12:27→14:21)
[2021-06-25] MEDS ORDERED: ROPIVACAINE 5 MG/ML 30 ML BTL (0.5%) ONE (12:40)
[2021-06-25] MEDS ORDERED: Sterile Water for Inj 10 ML ONE (13:16)
[2021-06-25] MEDS ORDERED: EPHEDrine (Pressors) 50 MG/ML VIAL ONE (13:16)
[2021-06-25] MEDS ORDERED: diPHENhydraMINE IV 50 MG/ML 1 ml VIAL (BENADRYL) IV PRN (14:21)
[2021-06-25] MEDS ORDERED: Ondansetron ODT 4 mg TAB 4 MG TAB PO PRN (14:21)
[2021-06-25] MEDS ORDERED: diPHENhydraMINE 25 mg TAB PO PRN (14:21)
[2021-06-25] MEDS ORDERED: Magnesium Hydroxide LIQ 30 ML UDC PO PRN (14:21)
[2021-06-25] MEDS ORDERED: Lactulose 30 ml UDC PO PRN (14:21)
[2021-06-25] MEDS ORDERED: Morphine 2 MG/ML SYRINGE IV PRN (14:21)
[2021-06-25] MEDS ORDERED: Acetaminophen IV 1 GM/100ML 100 ML IV ONE (14:49)
[2021-06-25] MEDS: fentaNYL 100 mcg/2 ml 50 MCG/ML VIAL IV PRN ×4 (15:55→17:48)
[2021-06-25] MEDS ORDERED: HYDROmorphone 1 MG/1 ML SYRINGE ONE (16:07)
[2021-06-25] MEDS: HYDROmorphone 1 MG/1 ML SYRINGE IV PRN ×4 (16:10→17:34)
[2021-06-25] MEDS: Lactated Ringers 1000 ml BAG 1,000 ML IV SCH (19:04)
[2021-06-25] MEDS ORDERED: Aspirin EC 81 mg TAB.EC (enteric coated) PO SCH (21:00)
[2021-06-25] MEDS: Magnesium Hydroxide LIQ 30 ML UDC PO SCH (21:02)
[2021-06-25] MEDS: Clindamycin 600 MG/D5W BAG 600 MG/50 ML BAG IV SCH (21:03)
[2021-06-25] MEDS ORDERED: Lactated Ringers 500 ml BAG 500 ML IV ONE (23:12)
[2021-06-26] MEDS: Lactated Ringers 1000 ml BAG 1,000 ML IV SCH (00:29)
[2021-06-26] MEDS: Clindamycin 600 MG/D5W BAG 600 MG/50 ML BAG IV SCH ×2 (04:55→14:05)
[2021-06-26 06:41] LABS: Hematocrit 35 % (42-52); Hemoglobin 11.9 g/dL (14.0-18.0); Mean Platelet Volume 7.9 fL (7.4-10.4); Platelet Count 182 10^3/uL (150-450)
[2021-06-26 06:54] LABS: Blood Urea Nitrogen 13 mg/dL (6-24); CO2 Carbon Dioxide 26 mmol/L (22-32); Calcium 8.3 mg/dL (8.6-10.3); Chloride 97 mmol/L (101-111); Glucose 157 mg/dL (70-100); Sodium 132 mmol/L (135-145); eGFR CKD-EPI 82.4 (>60)
[2021-06-26 06:55] LABS: Anion Gap 9 mmol/L (2-11)
[2021-06-26] MEDS ORDERED: Vitamin THERAPEUTIC TAB PO SCH (09:00)
[2021-06-26] MEDS ORDERED: NALOXEGOL 25 MG PO SCH (09:00)
[2021-06-26] MEDS: Magnesium Hydroxide LIQ 30 ML UDC PO SCH (09:43)
[2021-06-26 11:53] VITALS: BP 119/61
== END 2021-06-26 15:55 | disposition home or self-care (01) ==
LOC: AA 06-25 11:23 → INTOOBSV 06-25 11:23 → SSU 06-25 18:57
PROVIDERS: ADMIT Orthopaedic Surgery Adult Reconstructive Orthopaedic Surgery; ATTEND Orthopaedic Surgery Adult Reconstructive Orthopaedic Surgery